=== PATIENT | female | born 1960 | race Caucasian/White ===

== ENCOUNTER 2016-11-11 07:34 | Inpatient (IN) | payer MEDICAID, OTHER ==
[~2016-11-11 07:34] MED LIST: Lidocaine 1%/Sod Bicarbonate in NS 8.4% 1 ML Syringe IV PRN; Sodium Chloride 0.9% 10 ML Syringe FLUSH PRN
[2016-11-11] MEDS: Lactated Ringers 1,000 ML IV SCH ×2 (08:00→10:57)
--- NOTE | 2016-11-11 08:03 | PCM.PREANE ---
Preanesthetic Assessment - ANESTHESIA/TRANSFUSION/FAMILY HX Anesthesia/Transfusion History: No Prior Transfusion(s), Prior Anesthesia (no prob) Family History of Anesthesia Reaction: No - REVIEW OF SYSTEMS Constitutional: Reports: no symptoms TIE MAN: Reports: no symptoms Respiratory: Reports: no symptoms Cardiovascular: Reports: blood pressure problem GI: Reports: no symptoms Other: Reports: sinus problem, depression, anxiety - PHYSICAL ASSESSMENT HR: 91 O2 Sat by Pulse Oximetry: 93 RR: 16 BP: 144/87 Temp: 97.5 F Height: 5 ft 5 in Weight: 91 kg NPO Status Date: 11/10/16 NPO Status Time: 19:00 ASA Class: 2 Mental Status: alert & oriented x3 Airway Class: Mallampati = 1 Dentition: Reports: normal dentition Thyro-Mental Finger Breadths: 3 Mouth Opening Finger Breadths: 3 ROM/Head Extension: full Respiratory Status: lungs clear to auscultation bilaterally Cardiovascular Status: regular rate & rhythm, normal S1, S2, no murmur, blood pressure WNL - IMAGING/EKG Impressions: 11/06/16 normal stress test EKG 10/28/16 WNL normal CXR 10/28/16 negative chest - ALLERGIES Allergies/Adverse Reactions: Allergies Allergy/AdvReac Type Severity Reaction Status Date / Time No Known Allergies Allergy Verified 11/11/16 08:04 - BLOOD Blood Available: No - ANESTHESIA PLAN Medication Ordered: Betablocker Beta Simone: Metoprolol Beta-Simone Last Dose Date: 11/11/16 Beta-Simone Last Dose Time: 06:30 Anesthesia Type Planned: spinal - ACKNOWLEDGEMENTS Pt an appropriate candidate for the planned anesthesia: Yes Alternatives and risks of anesthesia discussed w pt/guardian: Yes Pt/Guardian understands and agree with anesthesia plan: Yes PreAnesthesia Questionnaire HEENT History: Reports: Impaired vision, Other (see below) Other HEENT History: has reading glasses Cardiovascular History: Reports: High cholesterol, Hypertension Respiratory History: Reports: Bronchitis, recurrent, Other (see below) Other Respiratory History: non diagnoseed sleep apnea 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 Musculoskeletal History: Reports: Osteoarthritis, Other (see below) Other Musculoskeletal History: knee pain, L rib pain from fractures Neurological History: Reports: None Psychiatric History: Reports: Other (see below) Other Psychiatric History: capillary hemangioma, sebaceous cyst Endocrine/Metabolic History: Reports: Obesity/BMI 30+ Hematologic History: Reports: None Immunologic History: Reports: None Oncologic (Cancer) History: Reports: None - Past Surgical History GI Surgical History: Reports: Bariatric procedure, Colonoscopy, Other (see below ) Other GI Surgeries/Procedures: lap band procedure Female Surgical History: Reports: Breast biopsy, Other (see below) Other Female Surgeries/Procedures: bladder repair - SUBSTANCE USE Smoking Status *Q: Current Every Day Smoker Tobacco Use Within Last Twelve Months: Cigarettes Second Hand Smoke Exposure: Yes Days Per Week of Alcohol Use: 0 Recreational Drug Use History: No - HOME MEDS Home Medications: Home Meds Aspirin [Ecotrin] 81 mg PO DAILY 11/08/16 [History] Cholecalciferol (Vitamin D3) [Vitamin D3] 2,000 unit PO DAILY 11/08/16 [History] Citalopram Hydrobromide [Citalopram HBr] 10 mg PO DAILY 11/08/16 [History] DULoxetine [Cymbalta] 60 mg PO DAILY 11/08/16 [History] Estradiol [Estradiol] 1 patch TOP WEEKLY 11/08/16 [History] Fexofenadine/Pseudoephedrine [Rosalind-D 12 Hour] 1 tab PO BID PRN 11/08/16 [ History] Fluticasone Propionate [Flonase] 1 spray NASBOTH BID PRN 11/08/16 [History] LORazepam [LORazepam] 0.5 mg PO BID PRN 11/08/16 [History] Metoprolol Succinate [Metoprolol Succinate] 50 mg PO DAILY 11/08/16 [History] Zolpidem [Ambien] 10 mg PO BEDTIME 11/08/16 [History] - CURRENT (IN HOUSE) MEDS Current Meds: Current Medications Bisacodyl (Dulcolax) 5 mg PO DAILY PRN PRN Reason: Constipation Morphine Sulfate 8 mg/Epinephrine HCl 0.3 mg/Cefuroxime Sodium 750 mg/Ketorolac Tromethamine 30 mg/Sodium Chloride 27.9 ml 0 mg .XX ONETIME ONE Stop: 11/11/16 09:01 Cyclobenzaprine HCl (Flexeril) 10 mg PO TID PRN PRN Reason: Spasms Diphenhydramine HCl (Benadryl) 25 mg IVPUSH Q4H PRN PRN Reason: Nausea Docusate Sodium (Colace) 100 mg PO BID [facility] Famotidine (Pepcid) 20 mg PO Q12H [facility] Lactated Ringer's (Ringers, Lactated) 1,000 mls @ 125 mls/hr IV ASDIRECTED [facility] Cefazolin Sodium/Dextrose 2 gm (/ Premix) 50 mls @ 100 mls/hr IV Q8H [facility] Stop: 11/11/16 23:14 Lidocaine/Sodium Bicarbonate (Buffered Lidocaine 1% In Ns 8.4%) 0.25 ml IV ONETIME PRN PRN Reason: Prior to IV Start Stop: 11/11/16 18:00 Magnesium Hydroxide (Milk Of Magnesia) 30 ml PO BID PRN PRN Reason: Constipation Morphine Sulfate (Morphine) 2 mg IVPUSH Q2H PRN PRN Reason: Breakthrough Pain Multivitamins (Thera) 1 each PO WITHBREAKFAST [facility] Naloxone HCl (Narcan) 0.1 mg IVPUSH Q5M PRN PRN Reason: Oversedation Stop: 11/11/16 12:16 Ondansetron HCl (Zofran) 4 mg IVPUSH Q6H PRN PRN Reason: Nausea/Vomiting Oxycodone/Acetaminophen (Percocet 325-5 Mg) 1 - 2 tab PO Q4H PRN PRN Reason: Pain Rivaroxaban (Xarelto) 10 mg PO DAILY [facility] Senna (Senna) 8.6 mg PO BID PRN PRN Reason: Constipation Sodium Chloride (Saline Flush) 10 ml FLUSH ASDIRECTED PRN PRN Reason: Keep Vein Open Discontinued Medications Bupivacaine HCl (Marcaine 0.25%) Confirm Administered Dose 30 ml .ROUTE .STK- MED ONE Stop: 11/11/16 07:41 Cefazolin Sodium (Ancef) Confirm Administered Dose 2 gm .ROUTE .STK-MED ONE Stop: 11/11/16 07:41 Iodine (Iodine 2% Mild Tincture) Confirm Administered Dose 30 ml .ROUTE .STK- MED ONE Stop: 11/11/16 07:41 Tranexamic Acid (Cyklokapron) Confirm Administered Dose 1,000 mg .ROUTE .STK- MED ONE Stop: 11/11/16 07:41
[2016-11-11] MEDS ORDERED: Midazolam 1 MG/ML 2 ML SDV ONE (08:26)
[2016-11-11] MEDS ORDERED: Lidocaine 1% 2 ML SDV ONE (08:26)
[2016-11-11] MEDS ORDERED: fentaNYL 100 MCG/2 ML SDV ONE (08:26)
[2016-11-11] MEDS ORDERED: Propofol 200 MG/20 ML SDV ONE ×2 (08:26→09:14)
[2016-11-11] MEDS ORDERED: Morphine PF 10 MG/10 ML SDV ONE (08:27)
[2016-11-11] MEDS ORDERED: ceFAZolin 1 GM Vial ONE (08:29)
[2016-11-11] MEDS ORDERED: Lactated Ringers 1,000 ML ONE ×2 (08:53→10:02)
[2016-11-11] MEDS ORDERED: fentaNYL 100 MCG/2 ML SDV IVPUSH PRN (08:54)
[2016-11-11] MEDS ORDERED: Ondansetron 4 MG/2 ML SDV IVPUSH PRN ×2 (08:54→12:00)
[2016-11-11] MEDS ORDERED: diphenhydrAMINE 50 MG/ML SDV IVPUSH PRN (08:54)
[2016-11-11] MEDS: Bupivacaine 0.25% 30 ML SDV ONE ×2 (09:19→09:55)
[2016-11-11] MEDS: ceFAZolin 1 GM Vial ONE ×2 (09:19→09:47)
[2016-11-11] MEDS: Iodine/Sodium Iodide 2% Tincture 30 ML Bottle ONE ×2 (09:20→09:44)
[2016-11-11] MEDS: Morphine 8 MG, EPINEPHrine 0.3 MG, Cefuroxime 750 MG, Ketorolac 30 MG, Sodium Chloride ... ONE ×10 (09:20→09:54)
--- NOTE | 2016-11-11 09:50 | PCM.OPNOTE ---
- General Post-Op/Procedure Note Date of Surgery/Procedure: 11/11/16 Operative Procedure(s): right total knee arthroplasty Pre Op Diagnosis: right knee osteoarthrosis Post-Op Diagnosis: Same Anesthesia Technique: Local, MAC, Spinal Primary Surgeon: Jay Au Anesthesia Provider: Chelsey Romero Business Database Analyst: Angie Erwin Business Database Analyst: Pilar Barrientos EBMelita in mLs: 350 Complications: None Condition: Good
[2016-11-11] MEDS ORDERED: Meperidine PF 50 MG/ML Syringe IVPUSH PRN (10:00)
[2016-11-11] MEDS ORDERED: ESTRADIOL TOP SCH (10:00)
[2016-11-11] MEDS: DULoxetine 30 MG Cap PO SCH ×2 (10:28→18:21)
[2016-11-11] MEDS ORDERED: ePHEDrine/Normal Saline 25 MG/5 ML Syringe ONE (10:29)
[2016-11-11] MEDS ORDERED: Ondansetron 4 MG/2 ML SDV ONE (10:30)
--- NOTE | 2016-11-11 10:30 | PCM.POSTAN ---
POST ANESTHESIA ASSESSMENT - MENTAL STATUS Mental Status: alert, oriented - VITAL SIGNS Pulse Rate: 77 SaO2: 96 Resp Rate: 15 Blood Pressure: 118/66 Temperature: 98.1 F - RESPIRATORY Respiratory Status: respiratory rate WNL, airway patent, O2 saturation stable, supplemental oxygen - CARDIOVASCULAR CV Status: pulse rate WNL, blood pressure stable - GASTROINTESTINAL GI Status: no symptoms - PAIN Pain Score: 0 - POST OP HYDRATION Hydration Status: adequate & stable
--- NOTE | 2016-11-11 10:54 | CR ---
Right knee: AP and lateral views of the right knee were obtained. Comparison: No previous knee exam. Right knee prosthesis is seen. Components are aligned. Underlying bony structures are intact. Mild amount of soft tissue air is noted. Air within the joint is also seen. Underlying bony structures are intact. Impression: 1. Satisfactory radiographic appearance of recently placed right knee prosthesis. Diagnostic code #2
[2016-11-11] MEDS ORDERED: Morphine 2 MG/ML Syringe IVPUSH PRN (12:00)
[2016-11-11] MEDS ORDERED: Bisacodyl 5 MG Tab PO PRN (12:00)
[2016-11-11] MEDS ORDERED: Naloxone 0.4 MG/ML SDV IVPUSH PRN (12:00)
[2016-11-11] MEDS: Acetaminophen/oxyCODONE 325-5 MG Tab PO PRN ×3 (14:14→22:24)
--- NOTE | 2016-11-11 14:45 | PCM.CONSN ---
- General Info Date of Service: 11/11/16 Admission Dx/Problem (Free Text): 56 year old female with history of right knee discomfort is s/p right total knee arthroplasty. The patient required risk startification as a result of risk factors and strong family history. She exercised using the Oliver protocol for a exercise cardiolite study. The patient had poor to average exercise capacity and achieved a submaximal heart rate at 83%. The study was not gated; a machine malfunction apparently occurred. There was no perfusion abnormalities. The patient returns from the OR without complaints. Functional Status: Reports: pain controlled, tolerating diet, urinating - Review of Systems General: Reports: no symptoms HEENT: Reports: no symptoms Pulmonary: Reports: no symptoms Cardiovascular: Reports: no symptoms Gastrointestinal: Reports: No symptoms Genitourinary: Reports: no symptoms Musculoskeletal: Reports: no symptoms Skin: Reports: no symptoms Neurological: Reports: no symptoms Psychiatric: Reports: no symptoms - Patient Data Vitals - most recent: Last Vital Signs Temp 37.0 C 11/11/16 14:00 Pulse 71 11/11/16 14:00 Resp 16 11/11/16 14:00 BP 136/87 11/11/16 14:00 Pulse Ox 98 11/11/16 14:00 Weight - most recent: 91 kg I&O - last 24 hours: Intake & Output 11/10/16 11/11/16 11/11/16 22:59 06:59 14:59 Intake Total 480 Output Total 675 Balance -195 Med Orders - Current: Current Medications Aspirin (Halfprin) 81 mg PO DAILY [facility] Bisacodyl (Dulcolax) 5 mg PO DAILY PRN PRN Reason: Constipation Cholecalciferol (Vitamin D3) 2,000 units PO DAILY [facility] Citalopram Hydrobromide (Celexa) 10 mg PO DAILY [facility] Cyclobenzaprine HCl (Flexeril) 10 mg PO TID PRN PRN Reason: Spasms Diphenhydramine HCl (Benadryl) 25 mg IVPUSH Q4H PRN PRN Reason: Nausea Diphenhydramine HCl (Benadryl) 25 mg IVPUSH Q6H PRN PRN Reason: pruritis Stop: 11/11/16 18:00 Last Admin: 11/11/16 14:05 Dose: 25 mg Docusate Sodium (Colace) 100 mg PO BID [facility] Duloxetine HCl (Cymbalta) 60 mg PO DAILY [facility] Last Admin: 11/11/16 10:28 Dose: 60 mg Famotidine (Pepcid) 20 mg PO Q12H [facility] Flunisolide (Nasalide Nasal [place]) 0 ml NASBOTH BID PRN PRN Reason: as directed Cefazolin Sodium/Dextrose 2 gm (/ Premix) 50 mls @ 100 mls/hr IV Q8H [facility] Stop: 11/12/16 08:59 Lorazepam (Ativan) 0.5 mg PO BID PRN PRN Reason: Anxiety Magnesium Hydroxide (Milk Of Magnesia) 30 ml PO BID PRN PRN Reason: Constipation Metoprolol Succinate (Toprol Xl) 50 mg PO DAILY [facility] Morphine Sulfate (Morphine) 2 mg IVPUSH Q2H PRN PRN Reason: Breakthrough Pain Multivitamins (Thera) 1 each PO WITHBREAKFAST [facility] Ondansetron HCl (Zofran) 4 mg IVPUSH Q6H PRN PRN Reason: Nausea/Vomiting Oxycodone/Acetaminophen (Percocet 325-5 Mg) 1 - 2 tab PO Q4H PRN PRN Reason: Pain Last Admin: 11/11/16 14:14 Dose: 2 tab Fexofenadine/Pseudoephedrine 1 Tab 0 each PO BID PRN PRN Reason: allergy symptoms Rivaroxaban (Xarelto) 10 mg PO DAILY [facility] Senna (Senna) 8.6 mg PO BID PRN PRN Reason: Constipation Sodium Chloride (Saline Flush) 10 ml FLUSH ASDIRECTED PRN PRN Reason: Keep Vein Open Zolpidem Tartrate (Ambien) 10 mg PO BEDTIME PRN PRN Reason: SLEEP Discontinued Medications Bupivacaine HCl (Marcaine 0.25%) Confirm Administered Dose 30 ml .ROUTE .STK- MED ONE Stop: 11/11/16 07:41 Last Admin: 11/11/16 09:55 Dose: 20 ml Cefazolin Sodium (Ancef) Confirm Administered Dose 2 gm .ROUTE .STK-MED ONE Stop: 11/11/16 07:41 Last Admin: 11/11/16 09:47 Dose: 2 gm Cefazolin Sodium (Ancef) Confirm Administered Dose 2 gm .ROUTE .STK-MED ONE Stop: 11/11/16 08:30 Morphine Sulfate 8 mg/Epinephrine HCl 0.3 mg/Cefuroxime Sodium 750 mg/Ketorolac Tromethamine 30 mg/Sodium Chloride 27.9 ml 0 mg .XX ONETIME ONE Stop: 11/11/16 09:01 Last Admin: 11/11/16 09:54 Dose: 788.3 mg Ephedrine Sulfate (Ephedrine In Ns) Confirm Administered Dose 25 mg .ROUTE .STK- MED ONE Stop: 11/11/16 10:30 Fentanyl (Sublimaze) Confirm Administered Dose 100 mcg .ROUTE .STK-MED ONE Stop: 11/11/16 08:27 Fentanyl (Sublimaze) 50 mcg IVPUSH Q5M PRN PRN Reason: Pain Stop: 11/11/16 18:00 Lactated Ringer's (Ringers, Lactated) 1,000 mls @ 125 mls/hr IV ASDIRECTED [facility] Last Admin: 11/11/16 10:57 Dose: 125 mls/hr Lactated Ringer's (Ringers, Lactated) Confirm Administered Dose 1,000 mls @ as directed .ROUTE .STK-MED ONE Stop: 11/11/16 08:54 Lactated Ringer's (Ringers, Lactated) Confirm Administered Dose 1,000 mls @ as directed .ROUTE .STK-MED ONE Stop: 11/11/16 10:03 Iodine (Iodine 2% Mild Tincture) Confirm Administered Dose 30 ml .ROUTE .STK- MED ONE Stop: 11/11/16 07:41 Last Admin: 11/11/16 09:44 Dose: 18 ml Lidocaine HCl (Lidocaine 1%) Confirm Administered Dose 4 ml .ROUTE .STK-MED ONE Stop: 11/11/16 08:27 Lidocaine/Sodium Bicarbonate (Buffered Lidocaine 1% In Ns 8.4%) 0.25 ml IV ONETIME PRN PRN Reason: Prior to IV Start Stop: 11/11/16 18:00 Last Admin: 11/11/16 08:00 Dose: 0.25 ml Meperidine HCl (Demerol) 12.5 mg IVPUSH ONETIME PRN PRN Reason: shivering Stop: 11/12/16 10:01 Midazolam HCl (Versed 1 Mg/Ml) Confirm Administered Dose 2 mg .ROUTE .STK-MED ONE Stop: 11/11/16 08:27 Morphine Sulfate (Duramorph Pf) Confirm Administered Dose 10 mg .ROUTE .STK-MED ONE Stop: 11/11/16 08:28 Naloxone HCl (Narcan) 0.1 mg IVPUSH Q5M PRN PRN Reason: Oversedation Stop: 11/11/16 12:16 Non-Formulary Medication (Estradiol [Estradiol]) 1 patch TOP WEEKLY [facility] Ondansetron HCl (Zofran) 4 mg IVPUSH ONETIME PRN PRN Reason: Nausea/Vomiting Stop: 11/11/16 18:00 Ondansetron HCl (Zofran) Confirm Administered Dose 4 mg .ROUTE .STK-MED ONE Stop: 11/11/16 10:31 Propofol (Diprivan 20 Ml) Confirm Administered Dose 200 mg .ROUTE .STK-MED ONE Stop: 11/11/16 08:27 Propofol (Diprivan 20 Ml) Confirm Administered Dose 200 mg .ROUTE .STK-MED ONE Stop: 11/11/16 09:15 Tranexamic Acid (Cyklokapron) Confirm Administered Dose 1,000 mg .ROUTE .STK- MED ONE Stop: 11/11/16 07:41 Last Admin: 11/11/16 09:59 Dose: 1,000 mg - Exam Quality Assessment: urine catheter, DVT prophylaxis General: alert, oriented, cooperative, no acute distress HEENT: Pupils equal, Pupils reactive, EOMI Neck: supple, trachea midline Lungs: Normal respiratory effort Cardiovascular: regular rate, regular rhythm Abdomen: bowel sounds present, soft, no tenderness, no distension (Female) Exam: Deferred Back Exam: normal inspection Extremities: normal pulses Skin: warm Wound/Incisions: dressing dry and intact Neurological: no new focal deficit, normal speech Psy/Mental Status: alert, normal affect, normal mood Consult PN Assessment/Plan POD#: 0 (1) Bronchitis SNOMED Code(s): 65617465 Code(s): J40 - BRONCHITIS, NOT SPECIFIED ACUTE OR CHRONIC Current Visit : Yes (2) Tobacco dependence SNOMED Code(s): 30481278 Code(s): F17.200 - NICOTINE DEPENDENCE, UNSPECIFIED, UNCOMPLICATED Current Visit: Yes (3) Hypertension SNOMED Code(s): 10928878 Code(s): I10 - ESSENTIAL (PRIMARY) HYPERTENSION Current Visit: Yes (4) Hyperlipidemia SNOMED Code(s): 91911023 Code(s): E78.5 - HYPERLIPIDEMIA, UNSPECIFIED Current Visit: Yes (5) Depression SNOMED Code(s): 62356761 Code(s): F32.9 - MAJOR DEPRESSIVE DISORDER, SINGLE EPISODE, UNSPECIFIED Current Visit: Yes (6) H/O gastric bypass SNOMED Code(s): 280050177, 80093030, 352514007 Code(s): Z98.890 - OTHER SPECIFIED POSTPROCEDURAL STATES Current Visit: Yes Problem List Initiated/Reviewed/Updated: Yes Plan: Impression: Post op right total knee arthroplasty Right knee osteoarthritis ChronicCOPD Depression HTN Hyperlipidemia S/P gastric banding Tobacco dependence Vitamin D deficiency Hormone Replacemnt therapyPain mgt Plan: Pain mgt Anti-emetics IVF/Santos post op DVT prophylaxis per ortho PT/OT post op eval and recommendation. Home meds
[2016-11-11] MEDS ORDERED: LORazepam 0.5 MG Tab PO PRN (15:00)
[2016-11-11] MEDS: ceFAZolin 2 GM in Premix Bag 1 BAG IV SCH ×2 (16:36→23:51)
[2016-11-11] MEDS: Metoprolol Succinate 50 MG Tab.ER PO SCH (16:49)
[2016-11-11] MEDS: diphenhydrAMINE 50 MG/ML SDV IVPUSH PRN (18:23)
--- NOTE | 2016-11-11 20:05 | OR ---
DATE OF OPERATION: 11/11/2016 SURGEON: Jay Au MD OPERATION PERFORMED: Right total knee arthroplasty. PREOPERATIVE DIAGNOSIS: Right knee osteoarthrosis. POSTOPERATIVE DIAGNOSIS: Right knee osteoarthrosis. ANESTHESIA: Local MAC with spinal. ANESTHESIA PROVIDER: Chelsey Romero. Assist: Angie Barrientos ESTIMATED BLOOD LOSS: 350 mL COMPLICATIONS: None. CONDITION: Stable. IMPLANTS: 1. Deisi size 4 PS femur. 2. Deisi size 3 [place] tibial base plate. 3. Deisi size 3, 9 mm X3 polyethylene PS. 4. Deisi 29 x 9 mm asymmetric patella. DESCRIPTION OF PROCEDURE: The patient was identified in the preop holding area. Proper site was marked and identified by the surgeon. The patient was taken back to the operating theater. After adequate anesthesia, the patient's right lower extremity had a nonsterile tourniquet applied and it was then sterilely prepped and draped in the usual sterile fashion. OR timeout was performed. The patient received 2 g IV Ancef. At this time, right lower extremity was exsanguinated. Tourniquet was insufflated to 300 mmHg. Standard medial parapatellar incision was made. Medial parapatellar arthrotomy was created. Deep fibers of the MCL were raised and anterior fat pad was resected. At this time, attention was turned to the patella. The patella measured a 22 and was resected for a 13 for a 29 x 9 mm patella. Drill holes were then drilled and found to be in adequate position. The drill was then drilled in the distal femur and the intramedullary distal femoral cutting guide was then placed. A 10 mm was resected off the distal femur and was found to be an adequate resection. Sizing guide was placed. It was found to be a size 4 PS femur that was shown on the implant record at the beginning of this dictation. The drill holes were drilled for the epicondylar axis using [place] line and epicondyles as reference. At this time, the 4-in - 1 cutting block was placed. An anterior posterior and anterior and posterior chamfer cuts were then completed. The correct size box cut was then placed and the box cut was completed and found to be an adequate resection. Attention was turned to the tibia. The posterior medial lateral retractors were placed. The extramedullary tibial guide was placed. It was placed in the old footprint of the ACL. It was aligned with the center of the ankle and 0 degrees of slope, 9 mm was then resected off the unaffected side. There was found to be an acceptable reduction. At this time, posterior osteophytes were removed along with medial and lateral meniscus. A trial implant was placed with a correct sized tibia that was mentioned at the beginning of the dictation. A 9 mm trial spacer and 9 mm X3 polyethylene were then placed. The patient's knee was brought through range of motion. The patella was tracking centrally and was stable to varus and valgus stress. Alignment was found to be roughly at 0 degrees. At this time, cement was mixed on the back table. The tibia was stamped and drilled in proper rotation. All cut surfaces were irrigated with pulse lavage irrigation with Ancef and then completely dried. Once this was completed, then the cement was ready. The [place] tibial base plate was cemented in place. Next, the 4 PS femur cemented into place and the 9 mm X3 polyethylene was placed. The patient's knee was brought into full extension. Excess cement was removed. The patella was then cemented in place at this time. Tourniquet was deflated. One liter dilute Betadine solution was irrigated through the knee along with 3 L of pulse lavage irrigation with Ancef. Periarticular injection was then completed. The patient's knee was brought through a range of motion. Once the cement had time to set up and it was found to be stable to varus valgus stress, the patella was tracking centrally with full range of motion. At this time, a #2 barbed suture was used for closure of the medial parapatellar arthrotomy. Topical tranexamic acid was placed. 2-0 Vicryl was used subcutaneously, a running 3-0 Monocryl was used subcuticularly. The patient tolerated the procedure well and was sent to the PACU in stable condition. MMAVIVA /[id number] FRANCISCO
[2016-11-11] MEDS: Famotidine 20 MG Tab PO SCH (20:33)
[2016-11-11] MEDS: Cyclobenzaprine 10 MG Tab PO PRN (20:33)
[2016-11-11] MEDS: Docusate Sodium 100 MG Cap PO SCH (20:33)
[2016-11-11] MEDS ORDERED: PSEUDOEPHEDRINE PO PRN (21:00)
[2016-11-11] MEDS ORDERED: FEXOFENADINE PO PRN (21:00)
[2016-11-11] MEDS ORDERED: Sennosides 8.6 MG Tab PO PRN (21:00)
[2016-11-11] MEDS ORDERED: Magnesium Hydroxide 400 MG/5 ML Susp 30 ML Cup PO PRN (21:00)
[2016-11-11] MEDS ORDERED: Zolpidem 10 MG Tab PO PRN (21:00)
[2016-11-12] MEDS: Acetaminophen/oxyCODONE 325-5 MG Tab PO PRN ×5 (03:41→20:42)
[2016-11-12] MEDS: diphenhydrAMINE 50 MG/ML SDV IVPUSH PRN (03:42)
[2016-11-12] MEDS ORDERED: Multivitamins,Therapeutic Tab PO SCH (07:00)
[2016-11-12] MEDS: ceFAZolin 2 GM in Premix Bag 1 BAG IV SCH (07:57)
[2016-11-12] MEDS: Docusate Sodium 100 MG Cap PO SCH ×2 (08:01→20:38)
[2016-11-12] MEDS: Cholecalciferol (Vitamin D3) 1,000 Unit Tab PO SCH (08:02)
[2016-11-12] MEDS: Aspirin 81 MG Tab.EC PO SCH (08:02)
[2016-11-12] MEDS: Cyclobenzaprine 10 MG Tab PO PRN ×2 (08:02→20:38)
[2016-11-12] MEDS: Metoprolol Succinate 50 MG Tab.ER PO SCH (08:03)
[2016-11-12] MEDS: DULoxetine 30 MG Cap PO SCH (08:05)
[2016-11-12] MEDS: Multivitamins,Therapeutic Tab PO SCH (08:05)
[2016-11-12] MEDS: Famotidine 20 MG Tab PO SCH ×2 (08:06→20:38)
[2016-11-12] MEDS: Rivaroxaban 10 MG Tab PO SCH (08:14)
[2016-11-12] MEDS: oxyCODONE 5 MG Tab PO PRN ×2 (11:11→16:46)
--- NOTE | 2016-11-12 14:07 | PCM.CONSN ---
- General Info Date of Service: 11/12/16 Admission Dx/Problem (Free Text): POD #[address] Au; pain is increased. She has ambulated with PT. She is uncomfortable in pain at time of my exam. VSS. Hgb stable at 12.5 this am. Functional Status: Reports: pain controlled, tolerating diet - Review of Systems General: Reports: no symptoms HEENT: Reports: no symptoms Pulmonary: Reports: no symptoms Cardiovascular: Reports: no symptoms Gastrointestinal: Reports: No symptoms Genitourinary: Reports: no symptoms Musculoskeletal: Reports: leg pain Skin: Reports: no symptoms Neurological: Reports: no symptoms Psychiatric: Reports: no symptoms - Patient Data Vitals - most recent: Last Vital Signs Temp 99.1 F 11/12/16 12:47 Pulse 72 11/12/16 12:47 Resp 20 11/12/16 12:47 BP 188/93 H 11/12/16 12:52 Pulse Ox 90 L 11/12/16 12:47 Weight - most recent: 211 lb I&O - last 24 hours: Intake & Output 11/11/16 11/12/16 11/12/16 22:59 06:59 14:59 Intake Total 363 236 6297 Output Total 400 500 Balance 450 -50 1290 Lab Results last 24 hrs: Laboratory Results - last 24 hr 11/12/16 11/12/16 Range/Units 06:58 06:58 WBC 8.06 (3.98-10.04) K/mm3 RBC 4.22 (3.98-5.22) M/mm3 Hgb 12.5 (11.2-15.7) gm/L Hct 38.4 (34.1-44.9) % MCV 91.0 (79.4-94.8) fl MCH 29.6 (25.6-32.2) pg MCHC 32.6 (32.2-35.5) g/dl RDW Std Deviation 44.1 (36.4-46.3) fL Plt Count 190 (182-369) K/mm3 MPV 10.4 (9.4-12.3) fl Neut % (Auto) 70.6 (34.0-71.1) % Lymph % (Auto) 16.9 L (19.3-51.7) % [place] % (Auto) 8.2 (4.7-12.5) % Eos % (Auto) 3.5 (0.7-5.8) Baso % (Auto) 0.4 (0.1-1.2) % Neut # 5.70 (1.56-6.13) K/mm3 Lymph # 1.36 (1.18-3.74) K/mm3 [place] # 0.66 H (0.24-0.36) K/mm3 Eos # 0.28 (0.04-0.36) K/mm3 Baso # 0.03 (0.01-0.08) K/mm3 Sodium 136 (136-145) mEq/L Potassium 4.4 (3.5-5.1) mEq/L Chloride 103 (98-107) mEq/L Carbon Dioxide 28 (21-32) mEq/L Anion Gap 9.4 (5-15) BUN 9 (7-18) mg/dL Creatinine 0.9 (0.55-1.02) mg/dL Est Cr Clr Drug Dosing 61.31 mL/min Estimated GFR (MDRD) > 60 (>60) mL/min BUN/Creatinine Ratio 10.0 L (14-18) Glucose 123 H (74-106) mg/dL Calcium 8.5 (8.5-10.1) mg/dL Total Bilirubin 0.3 (0.2-1.0) mg/dL AST 14 L (15-37) U/L ALT 23 (14-59) U/L Alkaline Phosphatase 49 (46-116) U/L Total Protein 6.4 (6.4-8.2) g/dl Albumin 3.1 L (3.4-5.0) g/dl Globulin 3.3 gm/dL Albumin/Globulin Ratio 0.9 L (1-2) Med Orders - Current: Current Medications Aspirin (Halfprin) 81 mg PO DAILY [facility] Last Admin: 11/12/16 08:02 Dose: 81 mg Bisacodyl (Dulcolax) 5 mg PO DAILY PRN PRN Reason: Constipation Last Admin: 11/12/16 08:02 Dose: 5 mg Cholecalciferol (Vitamin D3) 2,000 units PO DAILY [facility] Last Admin: 11/12/16 08:02 Dose: 2,000 units Citalopram Hydrobromide (Celexa) 10 mg PO DAILY [facility] Cyclobenzaprine HCl (Flexeril) 10 mg PO TID PRN PRN Reason: Spasms Last Admin: 11/12/16 08:02 Dose: 10 mg Diphenhydramine HCl (Benadryl) 25 mg IVPUSH Q4H PRN PRN Reason: Nausea Last Admin: 11/12/16 03:42 Dose: 25 mg Docusate Sodium (Colace) 100 mg PO BID [facility] Last Admin: 11/12/16 08:01 Dose: 100 mg Duloxetine HCl (Cymbalta) 60 mg PO DAILY [facility] Last Admin: 11/12/16 08:05 Dose: 60 mg Famotidine (Pepcid) 20 mg PO Q12H [facility] Last Admin: 11/12/16 08:06 Dose: 20 mg Flunisolide (Nasalide Nasal [place]) 0 ml NASBOTH BID PRN PRN Reason: as directed Lorazepam (Ativan) 0.5 mg PO BID PRN PRN Reason: Anxiety Magnesium Hydroxide (Milk Of Magnesia) 30 ml PO BID PRN PRN Reason: Constipation Medroxyprogesterone Acetate (Provera) 2.5 mg PO DAILY [facility] Last Admin: 11/12/16 08:06 Dose: 2.5 mg Metoprolol Succinate (Toprol Xl) 50 mg PO DAILY [facility] Last Admin: 11/12/16 08:03 Dose: 50 mg Morphine Sulfate (Morphine) 2 mg IVPUSH Q2H PRN PRN Reason: Breakthrough Pain Multivitamins (Thera) 1 each PO DAILY [facility] Last Admin: 11/12/16 08:05 Dose: 1 each Ondansetron HCl (Zofran) 4 mg IVPUSH Q6H PRN PRN Reason: Nausea/Vomiting Oxycodone HCl (Oxycodone) 5 mg PO Q6H PRN PRN Reason: Pain Last Admin: 11/12/16 11:11 Dose: 5 mg Oxycodone/Acetaminophen (Percocet 325-5 Mg) 1 - 2 tab PO Q4H PRN PRN Reason: Pain Last Admin: 11/12/16 13:05 Dose: 2 tab Fexofenadine/Pseudoephedrine 1 Tab 0 each PO BID PRN PRN Reason: allergy symptoms Rivaroxaban (Xarelto) 10 mg PO DAILY [facility] Last Admin: 11/12/16 08:14 Dose: 10 mg Senna (Senna) 8.6 mg PO BID PRN PRN Reason: Constipation Sodium Chloride (Saline Flush) 10 ml FLUSH ASDIRECTED PRN PRN Reason: Keep Vein Open Zolpidem Tartrate (Ambien) 10 mg PO BEDTIME PRN PRN Reason: SLEEP Discontinued Medications Bupivacaine HCl (Marcaine 0.25%) Confirm Administered Dose 30 ml .ROUTE .STK- MED ONE Stop: 11/11/16 07:41 Last Admin: 11/11/16 09:55 Dose: 20 ml Cefazolin Sodium (Ancef) Confirm Administered Dose 2 gm .ROUTE .STK-MED ONE Stop: 11/11/16 07:41 Last Admin: 11/11/16 09:47 Dose: 2 gm Cefazolin Sodium (Ancef) Confirm Administered Dose 2 gm .ROUTE .STK-MED ONE Stop: 11/11/16 08:30 Morphine Sulfate 8 mg/Epinephrine HCl 0.3 mg/Cefuroxime Sodium 750 mg/Ketorolac Tromethamine 30 mg/Sodium Chloride 27.9 ml 0 mg .XX ONETIME ONE Stop: 11/11/16 09:01 Last Admin: 11/11/16 09:54 Dose: 788.3 mg Diphenhydramine HCl (Benadryl) 25 mg IVPUSH Q6H PRN PRN Reason: pruritis Stop: 11/11/16 18:00 Last Admin: 11/11/16 14:05 Dose: 25 mg Ephedrine Sulfate (Ephedrine In Ns) Confirm Administered Dose 25 mg .ROUTE .STK- MED ONE Stop: 11/11/16 10:30 Fentanyl (Sublimaze) Confirm Administered Dose 100 mcg .ROUTE .STK-MED ONE Stop: 11/11/16 08:27 Fentanyl (Sublimaze) 50 mcg IVPUSH Q5M PRN PRN Reason: Pain Stop: 11/11/16 18:00 Lactated Ringer's (Ringers, Lactated) 1,000 mls @ 125 mls/hr IV ASDIRECTED [facility] Last Admin: 11/11/16 10:57 Dose: 125 mls/hr Cefazolin Sodium/Dextrose 2 gm (/ Premix) 50 mls @ 100 mls/hr IV Q8H [facility] Stop: 11/12/16 08:59 Last Admin: 11/12/16 07:57 Dose: 100 mls/hr Lactated Ringer's (Ringers, Lactated) Confirm Administered Dose 1,000 mls @ as directed .ROUTE .STK-MED ONE Stop: 11/11/16 08:54 Lactated Ringer's (Ringers, Lactated) Confirm Administered Dose 1,000 mls @ as directed .ROUTE .STK-MED ONE Stop: 11/11/16 10:03 Iodine (Iodine 2% Mild Tincture) Confirm Administered Dose 30 ml .ROUTE .STK- MED ONE Stop: 11/11/16 07:41 Last Admin: 11/11/16 09:44 Dose: 18 ml Lidocaine HCl (Lidocaine 1%) Confirm Administered Dose 4 ml .ROUTE .STK-MED ONE Stop: 11/11/16 08:27 Lidocaine/Sodium Bicarbonate (Buffered Lidocaine 1% In Ns 8.4%) 0.25 ml IV ONETIME PRN PRN Reason: Prior to IV Start Stop: 11/11/16 18:00 Last Admin: 11/11/16 08:00 Dose: 0.25 ml Meperidine HCl (Demerol) 12.5 mg IVPUSH ONETIME PRN PRN Reason: shivering Stop: 11/12/16 10:01 Midazolam HCl (Versed 1 Mg/Ml) Confirm Administered Dose 2 mg .ROUTE .STK-MED ONE Stop: 11/11/16 08:27 Morphine Sulfate (Duramorph Pf) Confirm Administered Dose 10 mg .ROUTE .STK-MED ONE Stop: 11/11/16 08:28 Multivitamins (Thera) 1 each PO WITHBREAKFAST [facility] Naloxone HCl (Narcan) 0.1 mg IVPUSH Q5M PRN PRN Reason: Oversedation Stop: 11/11/16 12:16 Non-Formulary Medication (Estradiol [Estradiol]) 1 patch TOP WEEKLY [facility] Ondansetron HCl (Zofran) 4 mg IVPUSH ONETIME PRN PRN Reason: Nausea/Vomiting Stop: 11/11/16 18:00 Ondansetron HCl (Zofran) Confirm Administered Dose 4 mg .ROUTE .STK-MED ONE Stop: 11/11/16 10:31 Propofol (Diprivan 20 Ml) Confirm Administered Dose 200 mg .ROUTE .STK-MED ONE Stop: 11/11/16 08:27 Propofol (Diprivan 20 Ml) Confirm Administered Dose 200 mg .ROUTE .STK-MED ONE Stop: 11/11/16 09:15 Tranexamic Acid (Cyklokapron) Confirm Administered Dose 1,000 mg .ROUTE .STK- MED ONE Stop: 11/11/16 07:41 Last Admin: 11/11/16 09:59 Dose: 1,000 mg - Exam Quality Assessment: DVT prophylaxis General: alert, oriented, cooperative, mild distress HEENT: Pupils equal, Pupils reactive, EOMI, Mucous membr. moist/pink Neck: supple Lungs: Clear to auscultation, Normal respiratory effort Cardiovascular: regular rate, regular rhythm Abdomen: bowel sounds present, soft, no tenderness (Female) Exam: Deferred Back Exam: other (SCD's bilat; ice to rt knee) Peripheral Pulses: 1+: dorsalis pedis (L), dorsalis pedis (R) Skin: warm, dry Neurological: no new focal deficit Psy/Mental Status: alert, normal affect, normal mood Consult PN Assessment/Plan POD#: 1 Problem List Initiated/Reviewed/Updated: Yes My Orders last 24 hours: My Active Orders 11/12/16 14:03 Ready for Discharge [RC] PER UNIT ROUTINE Plan: POD #1 s/p Rt TKA with Dr. Au -Pain mgnt and DVT prophylax per ortho -PT/OT -VSS -Hgb stable at 12.5, other labs stable Other chronic medical conditions stable. Cont usual home meds upon discharge. If pain under control, she is ok for discharge later today from Hospitalist standpoint.
--- NOTE | 2016-11-12 14:50 | PCM.SURGPN ---
- General Info Date of Service: 11/12/16 POD#: 1 Functional Status: Reports: tolerating diet, ambulating, urinating, other (The pt states her pain is not controlled.) - Patient Data Vitals - most recent: Last Vital Signs Temp 99.1 F 11/12/16 12:47 Pulse 72 11/12/16 12:47 Resp 20 11/12/16 12:47 BP 188/93 H 11/12/16 12:52 Pulse Ox 90 L 11/12/16 12:47 Weight - most recent: 211 lb I&O - last 24 hours: Intake & Output 11/11/16 11/12/16 11/12/16 22:59 06:59 14:59 Intake Total 087 935 3621 Output Total 400 500 Balance 450 -50 1290 Lab Results last 24 hrs: Laboratory Results - last 24 hr 11/12/16 11/12/16 Range/Units 06:58 06:58 WBC 8.06 (3.98-10.04) K/mm3 RBC 4.22 (3.98-5.22) M/mm3 Hgb 12.5 (11.2-15.7) gm/L Hct 38.4 (34.1-44.9) % MCV 91.0 (79.4-94.8) fl MCH 29.6 (25.6-32.2) pg MCHC 32.6 (32.2-35.5) g/dl RDW Std Deviation 44.1 (36.4-46.3) fL Plt Count 190 (182-369) K/mm3 MPV 10.4 (9.4-12.3) fl Neut % (Auto) 70.6 (34.0-71.1) % Lymph % (Auto) 16.9 L (19.3-51.7) % [place] % (Auto) 8.2 (4.7-12.5) % Eos % (Auto) 3.5 (0.7-5.8) Baso % (Auto) 0.4 (0.1-1.2) % Neut # 5.70 (1.56-6.13) K/mm3 Lymph # 1.36 (1.18-3.74) K/mm3 [place] # 0.66 H (0.24-0.36) K/mm3 Eos # 0.28 (0.04-0.36) K/mm3 Baso # 0.03 (0.01-0.08) K/mm3 Sodium 136 (136-145) mEq/L Potassium 4.4 (3.5-5.1) mEq/L Chloride 103 (98-107) mEq/L Carbon Dioxide 28 (21-32) mEq/L Anion Gap 9.4 (5-15) BUN 9 (7-18) mg/dL Creatinine 0.9 (0.55-1.02) mg/dL Est Cr Clr Drug Dosing 61.31 mL/min Estimated GFR (MDRD) > 60 (>60) mL/min BUN/Creatinine Ratio 10.0 L (14-18) Glucose 123 H (74-106) mg/dL Calcium 8.5 (8.5-10.1) mg/dL Total Bilirubin 0.3 (0.2-1.0) mg/dL AST 14 L (15-37) U/L ALT 23 (14-59) U/L Alkaline Phosphatase 49 (46-116) U/L Total Protein 6.4 (6.4-8.2) g/dl Albumin 3.1 L (3.4-5.0) g/dl Globulin 3.3 gm/dL Albumin/Globulin Ratio 0.9 L (1-2) Med Orders - Current: Current Medications Aspirin (Halfprin) 81 mg PO DAILY [facility] Last Admin: 11/12/16 08:02 Dose: 81 mg Bisacodyl (Dulcolax) 5 mg PO DAILY PRN PRN Reason: Constipation Last Admin: 11/12/16 08:02 Dose: 5 mg Cholecalciferol (Vitamin D3) 2,000 units PO DAILY [facility] Last Admin: 11/12/16 08:02 Dose: 2,000 units Citalopram Hydrobromide (Celexa) 10 mg PO DAILY [facility] Cyclobenzaprine HCl (Flexeril) 10 mg PO TID PRN PRN Reason: Spasms Last Admin: 11/12/16 08:02 Dose: 10 mg Diphenhydramine HCl (Benadryl) 25 mg IVPUSH Q4H PRN PRN Reason: Nausea Last Admin: 11/12/16 03:42 Dose: 25 mg Docusate Sodium (Colace) 100 mg PO BID [facility] Last Admin: 11/12/16 08:01 Dose: 100 mg Duloxetine HCl (Cymbalta) 60 mg PO DAILY [facility] Last Admin: 11/12/16 08:05 Dose: 60 mg Famotidine (Pepcid) 20 mg PO Q12H [facility] Last Admin: 11/12/16 08:06 Dose: 20 mg Flunisolide (Nasalide Nasal [place]) 0 ml NASBOTH BID PRN PRN Reason: as directed Lorazepam (Ativan) 0.5 mg PO BID PRN PRN Reason: Anxiety Magnesium Hydroxide (Milk Of Magnesia) 30 ml PO BID PRN PRN Reason: Constipation Medroxyprogesterone Acetate (Provera) 2.5 mg PO DAILY [facility] Last Admin: 11/12/16 08:06 Dose: 2.5 mg Metoprolol Succinate (Toprol Xl) 50 mg PO DAILY [facility] Last Admin: 11/12/16 08:03 Dose: 50 mg Morphine Sulfate (Morphine) 2 mg IVPUSH Q2H PRN PRN Reason: Breakthrough Pain Multivitamins (Thera) 1 each PO DAILY [facility] Last Admin: 11/12/16 08:05 Dose: 1 each Ondansetron HCl (Zofran) 4 mg IVPUSH Q6H PRN PRN Reason: Nausea/Vomiting Oxycodone HCl (Oxycodone) 5 mg PO Q6H PRN PRN Reason: Pain Last Admin: 11/12/16 11:11 Dose: 5 mg Oxycodone/Acetaminophen (Percocet 325-5 Mg) 1 - 2 tab PO Q4H PRN PRN Reason: Pain Last Admin: 11/12/16 13:05 Dose: 2 tab Fexofenadine/Pseudoephedrine 1 Tab 0 each PO BID PRN PRN Reason: allergy symptoms Rivaroxaban (Xarelto) 10 mg PO DAILY [facility] Last Admin: 11/12/16 08:14 Dose: 10 mg Senna (Senna) 8.6 mg PO BID PRN PRN Reason: Constipation Sodium Chloride (Saline Flush) 10 ml FLUSH ASDIRECTED PRN PRN Reason: Keep Vein Open Zolpidem Tartrate (Ambien) 10 mg PO BEDTIME PRN PRN Reason: SLEEP Discontinued Medications Bupivacaine HCl (Marcaine 0.25%) Confirm Administered Dose 30 ml .ROUTE .[facility]- MED ONE Stop: 11/11/16 07:41 Last Admin: 11/11/16 09:55 Dose: 20 ml Cefazolin Sodium (Ancef) Confirm Administered Dose 2 gm .ROUTE .STK-MED ONE Stop: 11/11/16 07:41 Last Admin: 11/11/16 09:47 Dose: 2 gm Cefazolin Sodium (Ancef) Confirm Administered Dose 2 gm .ROUTE .STK-MED ONE Stop: 11/11/16 08:30 Morphine Sulfate 8 mg/Epinephrine HCl 0.3 mg/Cefuroxime Sodium 750 mg/Ketorolac Tromethamine 30 mg/Sodium Chloride 27.9 ml 0 mg .XX ONETIME ONE Stop: 11/11/16 09:01 Last Admin: 11/11/16 09:54 Dose: 788.3 mg Diphenhydramine HCl (Benadryl) 25 mg IVPUSH Q6H PRN PRN Reason: pruritis Stop: 11/11/16 18:00 Last Admin: 11/11/16 14:05 Dose: 25 mg Ephedrine Sulfate (Ephedrine In Ns) Confirm Administered Dose 25 mg .ROUTE .STK- MED ONE Stop: 11/11/16 10:30 Fentanyl (Sublimaze) Confirm Administered Dose 100 mcg .ROUTE .STK-MED ONE Stop: 11/11/16 08:27 Fentanyl (Sublimaze) 50 mcg IVPUSH Q5M PRN PRN Reason: Pain Stop: 11/11/16 18:00 Lactated Ringer's (Ringers, Lactated) 1,000 mls @ 125 mls/hr IV ASDIRECTED [facility] Last Admin: 11/11/16 10:57 Dose: 125 mls/hr Cefazolin Sodium/Dextrose 2 gm (/ Premix) 50 mls @ 100 mls/hr IV Q8H [facility] Stop: 11/12/16 08:59 Last Admin: 11/12/16 07:57 Dose: 100 mls/hr Lactated Ringer's (Ringers, Lactated) Confirm Administered Dose 1,000 mls @ as directed .ROUTE .STK-MED ONE Stop: 11/11/16 08:54 Lactated Ringer's (Ringers, Lactated) Confirm Administered Dose 1,000 mls @ as directed .ROUTE .STK-MED ONE Stop: 11/11/16 10:03 Iodine (Iodine 2% Mild Tincture) Confirm Administered Dose 30 ml .ROUTE .STK- MED ONE Stop: 11/11/16 07:41 Last Admin: 11/11/16 09:44 Dose: 18 ml Lidocaine HCl (Lidocaine 1%) Confirm Administered Dose 4 ml .ROUTE .STK-MED ONE Stop: 11/11/16 08:27 Lidocaine/Sodium Bicarbonate (Buffered Lidocaine 1% In Ns 8.4%) 0.25 ml IV ONETIME PRN PRN Reason: Prior to IV Start Stop: 11/11/16 18:00 Last Admin: 11/11/16 08:00 Dose: 0.25 ml Meperidine HCl (Demerol) 12.5 mg IVPUSH ONETIME PRN PRN Reason: shivering Stop: 11/12/16 10:01 Midazolam HCl (Versed 1 Mg/Ml) Confirm Administered Dose 2 mg .ROUTE .STK-MED ONE Stop: 11/11/16 08:27 Morphine Sulfate (Duramorph Pf) Confirm Administered Dose 10 mg .ROUTE .STK-MED ONE Stop: 11/11/16 08:28 Multivitamins (Thera) 1 each PO WITHBREAKFAST [facility] Naloxone HCl (Narcan) 0.1 mg IVPUSH Q5M PRN PRN Reason: Oversedation Stop: 11/11/16 12:16 Non-Formulary Medication (Estradiol [Estradiol]) 1 patch TOP WEEKLY [facility] Ondansetron HCl (Zofran) 4 mg IVPUSH ONETIME PRN PRN Reason: Nausea/Vomiting Stop: 11/11/16 18:00 Ondansetron HCl (Zofran) Confirm Administered Dose 4 mg .ROUTE .STK-MED ONE Stop: 11/11/16 10:31 Propofol (Diprivan 20 Ml) Confirm Administered Dose 200 mg .ROUTE .STK-MED ONE Stop: 11/11/16 08:27 Propofol (Diprivan 20 Ml) Confirm Administered Dose 200 mg .ROUTE .STK-MED ONE Stop: 11/11/16 09:15 Tranexamic Acid (Cyklokapron) Confirm Administered Dose 1,000 mg .ROUTE .STK- MED ONE Stop: 11/11/16 07:41 Last Admin: 11/11/16 09:59 Dose: 1,000 mg - Exam Wound/Incisions: dressing dry and intact General: alert, cooperative, no acute distress Lungs: Normal respiratory effort Extremities: normal pulses, no calf tenderness (NVS intact for RLE. Noemy's negative.) - Problem List Review Problem List Initiated/Reviewed/Updated: Yes - My Orders Last 24 Hours: Active Orders 24 hr Category Date Time Status Ready for Discharge [RC] PER UNIT ROUTINE Care 11/12/16 14:03 Active Aspirin [Halfprin] Med 11/12/16 09:00 Active 81 mg PO DAILY Cholecalciferol (Vitamin D3) [Vitamin D3] Med 11/12/16 09:00 Active 2,000 units PO DAILY Citalopram [Celexa] Med 11/12/16 18:00 Active 10 mg PO DAILY Cyclobenzaprine [Flexeril] Med 11/11/16 15:00 Active 10 mg PO TID PRN DULoxetine [Cymbalta] Med 11/11/16 18:00 Active 60 mg PO DAILY Docusate Sodium [Colace] Med 11/11/16 21:00 Active 100 mg PO BID Famotidine [Pepcid] Med 11/11/16 21:00 Active 20 mg PO Q12H Flunisolide [Nasalide Nasal [place]] Med 11/11/16 21:00 Active 0 ml NASBOTH BID PRN LORazepam [Ativan] Med 11/11/16 15:00 Active 0.5 mg PO BID PRN Magnesium Hydroxide [Milk of Magnesia] Med 11/11/16 21:00 Active 30 ml PO BID PRN Metoprolol Succinate [Toprol XL] Med 11/11/16 16:00 Active 50 mg PO DAILY Multivitamins,Therapeutic [Thera] Med 11/12/16 09:00 Active 1 each PO DAILY Patient's Own Medication [Ptom] Med 11/11/16 21:00 Active 0 each PO BID PRN Rivaroxaban [Xarelto] Med 11/12/16 09:00 Active 10 mg PO DAILY Sennosides [Senna] Med 11/11/16 21:00 Active 8.6 mg PO BID PRN Zolpidem [Ambien] Med 11/11/16 21:00 Active 10 mg PO BEDTIME PRN medroxyPROGESTERone [Provera] Med 11/12/16 09:00 Active 2.5 mg PO DAILY oxyCODONE Med 11/12/16 10:47 Active 5 mg PO Q6H PRN Medication Orders Aspirin (Halfprin) 81 mg PO DAILY [facility] Last Admin: 11/12/16 08:02 Dose: 81 mg Bisacodyl (Dulcolax) 5 mg PO DAILY PRN PRN Reason: Constipation Last Admin: 11/12/16 08:02 Dose: 5 mg Cholecalciferol (Vitamin D3) 2,000 units PO DAILY [facility] Last Admin: 11/12/16 08:02 Dose: 2,000 units Citalopram Hydrobromide (Celexa) 10 mg PO DAILY [facility] Cyclobenzaprine HCl (Flexeril) 10 mg PO TID PRN PRN Reason: Spasms Last Admin: 11/12/16 08:02 Dose: 10 mg Admin: 11/11/16 20:33 Dose: 10 mg Diphenhydramine HCl (Benadryl) 25 mg IVPUSH Q4H PRN PRN Reason: Nausea Last Admin: 11/12/16 03:42 Dose: 25 mg Admin: 11/11/16 18:23 Dose: 25 mg Docusate Sodium (Colace) 100 mg PO BID [facility] Last Admin: 11/12/16 08:01 Dose: 100 mg Admin: 11/11/16 20:33 Dose: 100 mg Duloxetine HCl (Cymbalta) 60 mg PO DAILY [facility] Last Admin: 11/12/16 08:05 Dose: 60 mg Admin: 11/11/16 18:21 Dose: Admin: 11/11/16 10:28 Dose: 60 mg Famotidine (Pepcid) 20 mg PO Q12H [facility] Last Admin: 11/12/16 08:06 Dose: 20 mg Admin: 11/11/16 20:33 Dose: 20 mg Flunisolide (Nasalide Nasal [place]) 0 ml NASBOTH BID PRN PRN Reason: as directed Lorazepam (Ativan) 0.5 mg PO BID PRN PRN Reason: Anxiety Magnesium Hydroxide (Milk Of Magnesia) 30 ml PO BID PRN PRN Reason: Constipation Medroxyprogesterone Acetate (Provera) 2.5 mg PO DAILY [facility] Last Admin: 11/12/16 08:06 Dose: 2.5 mg Metoprolol Succinate (Toprol Xl) 50 mg PO DAILY [facility] Last Admin: 11/12/16 08:03 Dose: 50 mg Admin: 03/06/17 16:49 Dose: Morphine Sulfate (Morphine) 2 mg IVPUSH Q2H PRN PRN Reason: Breakthrough Pain Multivitamins (Thera) 1 each PO DAILY [facility] Last Admin: 11/12/16 08:05 Dose: 1 each Ondansetron HCl (Zofran) 4 mg IVPUSH Q6H PRN PRN Reason: Nausea/Vomiting Oxycodone HCl (Oxycodone) 5 mg PO Q6H PRN PRN Reason: Pain Last Admin: 11/12/16 11:11 Dose: 5 mg Oxycodone/Acetaminophen (Percocet 325-5 Mg) 1 - 2 tab PO Q4H PRN PRN Reason: Pain Last Admin: 11/12/16 13:05 Dose: 2 tab Admin: 11/12/16 07:58 Dose: 2 tab Admin: 11/12/16 03:41 Dose: 2 tab Admin: 11/11/16 22:24 Dose: 2 tab Admin: 11/11/16 18:21 Dose: 2 tab Admin: 11/11/16 14:14 Dose: 2 tab Fexofenadine/Pseudoephedrine 1 Tab 0 each PO BID PRN PRN Reason: allergy symptoms Rivaroxaban (Xarelto) 10 mg PO DAILY [facility] Last Admin: 11/12/16 08:14 Dose: 10 mg Senna (Senna) 8.6 mg PO BID PRN PRN Reason: Constipation Sodium Chloride (Saline Flush) 10 ml FLUSH ASDIRECTED PRN PRN Reason: Keep Vein Open Zolpidem Tartrate (Ambien) 10 mg PO BEDTIME PRN PRN Reason: SLEEP - Assessment Assessment (Free Text/Narrative):: POD#1 - right TKA - Plan Plan (Free Text/Narrative):: 1. Hgb 12.5. 2. Xarelto, SCDs, TEDs. 3. The pt has been slow to progress with therapy today due to pain. 4. Medical management per Hospitalist service. Dr. Au evaluated the pt today.
[2016-11-12] MEDS ORDERED: hydrALAZINE 20 MG/ML SDV IVPUSH PRN (16:18)
[2016-11-12] MEDS: Losartan 25 MG Tab PO SCH ×2 (16:46→20:39)
[2016-11-12] MEDS: Citalopram 10 MG Tab PO SCH ×2 (16:47→18:17)
[2016-11-13] MEDS: oxyCODONE 5 MG Tab PO PRN ×2 (01:44→08:50)
[2016-11-13] MEDS: Acetaminophen/oxyCODONE 325-5 MG Tab PO PRN ×3 (01:45→10:39)
[2016-11-13] MEDS: Cyclobenzaprine 10 MG Tab PO PRN (05:47)
[2016-11-13] MEDS: Metoprolol Succinate 50 MG Tab.ER PO SCH (08:39)
[2016-11-13] MEDS: Multivitamins,Therapeutic Tab PO SCH (08:39)
[2016-11-13] MEDS: Docusate Sodium 100 MG Cap PO SCH (08:39)
[2016-11-13] MEDS: Rivaroxaban 10 MG Tab PO SCH (08:40)
[2016-11-13] MEDS: DULoxetine 30 MG Cap PO SCH (08:40)
[2016-11-13] MEDS: Cholecalciferol (Vitamin D3) 1,000 Unit Tab PO SCH (08:41)
[2016-11-13] MEDS: Losartan 25 MG Tab PO SCH (08:41)
[2016-11-13] MEDS: Famotidine 20 MG Tab PO SCH (08:41)
[2016-11-13] MEDS: Citalopram 10 MG Tab PO SCH (08:41)
[2016-11-13] MEDS: Aspirin 81 MG Tab.EC PO SCH (08:41)
[2016-11-13 08:46] VITALS: BP 123/65
--- NOTE | 2016-11-13 09:05 | PCM.CONSN ---
- General Info Date of Service: 11/13/16 Admission Dx/Problem (Free Text): POD #[address] Au. Pain is under much better control today. Slept well last night. Has done well with PT/OT. She is ready to be discharged home today. VSS Labs for this am ordered and pending. Functional Status: Reports: pain controlled, tolerating diet, ambulating, urinating. Denies: new symptoms - Review of Systems General: Reports: no symptoms HEENT: Reports: no symptoms Pulmonary: Reports: no symptoms Cardiovascular: Reports: no symptoms Gastrointestinal: Reports: No symptoms Genitourinary: Reports: no symptoms Musculoskeletal: Reports: leg pain Skin: Reports: no symptoms Neurological: Reports: no symptoms Psychiatric: Reports: no symptoms - Patient Data Vitals - most recent: Last Vital Signs Temp 99.0 F 11/13/16 07:56 Pulse 79 11/13/16 08:39 Resp 18 11/13/16 07:56 BP 123/65 11/13/16 08:41 Pulse Ox 92 L 11/13/16 07:56 Weight - most recent: 207 lb 1 oz I&O - last 24 hours: Intake & Output 11/12/16 11/13/16 11/13/16 22:59 06:59 14:59 Intake Total 1150 800 Output Total 350 3200 Balance 800 -2400 Med Orders - Current: Current Medications Aspirin (Halfprin) 81 mg PO DAILY [facility] Last Admin: 11/13/16 08:41 Dose: 81 mg Bisacodyl (Dulcolax) 5 mg PO DAILY PRN PRN Reason: Constipation Last Admin: 11/12/16 08:02 Dose: 5 mg Cholecalciferol (Vitamin D3) 2,000 units PO DAILY [facility] Last Admin: 11/13/16 08:41 Dose: 2,000 units Citalopram Hydrobromide (Celexa) 10 mg PO DAILY [facility] Last Admin: 11/13/16 08:41 Dose: 10 mg Cyclobenzaprine HCl (Flexeril) 10 mg PO TID PRN PRN Reason: Spasms Last Admin: 11/13/16 05:47 Dose: 10 mg Diphenhydramine HCl (Benadryl) 25 mg IVPUSH Q4H PRN PRN Reason: Nausea Last Admin: 11/12/16 03:42 Dose: 25 mg Docusate Sodium (Colace) 100 mg PO BID [facility] Last Admin: 11/13/16 08:39 Dose: 100 mg Duloxetine HCl (Cymbalta) 60 mg PO DAILY [facility] Last Admin: 11/13/16 08:40 Dose: 60 mg Famotidine (Pepcid) 20 mg PO Q12H [facility] Last Admin: 11/13/16 08:41 Dose: 20 mg Flunisolide (Nasalide Nasal [place]) 0 ml NASBOTH BID PRN PRN Reason: as directed Hydralazine HCl (Apresoline) 20 mg IVPUSH Q6H PRN PRN Reason: Hypertension Last Admin: 11/12/16 20:47 Dose: 20 mg Lorazepam (Ativan) 0.5 mg PO BID PRN PRN Reason: Anxiety Last Admin: 11/12/16 20:38 Dose: 0.5 mg Losartan Potassium (Cozaar) 25 mg PO BID [facility] Last Admin: 11/13/16 08:41 Dose: 25 mg Magnesium Hydroxide (Milk Of Magnesia) 30 ml PO BID PRN PRN Reason: Constipation Medroxyprogesterone Acetate (Provera) 2.5 mg PO DAILY [facility] Last Admin: 11/13/16 08:40 Dose: 2.5 mg Metoprolol Succinate (Toprol Xl) 50 mg PO DAILY [facility] Last Admin: 11/13/16 08:39 Dose: 50 mg Morphine Sulfate (Morphine) 2 mg IVPUSH Q2H PRN PRN Reason: Breakthrough Pain Multivitamins (Thera) 1 each PO DAILY [facility] Last Admin: 11/13/16 08:39 Dose: 1 each Ondansetron HCl (Zofran) 4 mg IVPUSH Q6H PRN PRN Reason: Nausea/Vomiting Oxycodone HCl (Oxycodone) 5 mg PO Q6H PRN PRN Reason: Pain Last Admin: 11/13/16 08:50 Dose: 5 mg Oxycodone/Acetaminophen (Percocet 325-5 Mg) 1 - 2 tab PO Q4H PRN PRN Reason: Pain Last Admin: 11/13/16 05:47 Dose: 2 tab Fexofenadine/Pseudoephedrine 1 Tab 0 each PO BID PRN PRN Reason: allergy symptoms Rivaroxaban (Xarelto) 10 mg PO DAILY [facility] Last Admin: 11/13/16 08:40 Dose: 10 mg Senna (Senna) 8.6 mg PO BID PRN PRN Reason: Constipation Sodium Chloride (Saline Flush) 10 ml FLUSH ASDIRECTED PRN PRN Reason: Keep Vein Open Zolpidem Tartrate (Ambien) 10 mg PO BEDTIME PRN PRN Reason: SLEEP Discontinued Medications Bupivacaine HCl (Marcaine 0.25%) Confirm Administered Dose 30 ml .ROUTE .STK- MED ONE Stop: 11/11/16 07:41 Last Admin: 11/11/16 09:55 Dose: 20 ml Cefazolin Sodium (Ancef) Confirm Administered Dose 2 gm .ROUTE .STK-MED ONE Stop: 11/11/16 07:41 Last Admin: 11/11/16 09:47 Dose: 2 gm Cefazolin Sodium (Ancef) Confirm Administered Dose 2 gm .ROUTE .STK-MED ONE Stop: 11/11/16 08:30 Morphine Sulfate 8 mg/Epinephrine HCl 0.3 mg/Cefuroxime Sodium 750 mg/Ketorolac Tromethamine 30 mg/Sodium Chloride 27.9 ml 0 mg .XX ONETIME ONE Stop: 11/11/16 09:01 Last Admin: 11/11/16 09:54 Dose: 788.3 mg Diphenhydramine HCl (Benadryl) 25 mg IVPUSH Q6H PRN PRN Reason: pruritis Stop: 11/11/16 18:00 Last Admin: 11/11/16 14:05 Dose: 25 mg Ephedrine Sulfate (Ephedrine In Ns) Confirm Administered Dose 25 mg .ROUTE .STK- MED ONE Stop: 11/11/16 10:30 Fentanyl (Sublimaze) Confirm Administered Dose 100 mcg .ROUTE .STK-MED ONE Stop: 11/11/16 08:27 Fentanyl (Sublimaze) 50 mcg IVPUSH Q5M PRN PRN Reason: Pain Stop: 11/11/16 18:00 Lactated Ringer's (Ringers, Lactated) 1,000 mls @ 125 mls/hr IV ASDIRECTED [facility] Last Admin: 11/11/16 10:57 Dose: 125 mls/hr Cefazolin Sodium/Dextrose 2 gm (/ Premix) 50 mls @ 100 mls/hr IV Q8H [facility] Stop: 11/12/16 08:59 Last Admin: 11/12/16 07:57 Dose: 100 mls/hr Lactated Ringer's (Ringers, Lactated) Confirm Administered Dose 1,000 mls @ as directed .ROUTE .STK-MED ONE Stop: 11/11/16 08:54 Lactated Ringer's (Ringers, Lactated) Confirm Administered Dose 1,000 mls @ as directed .ROUTE .STK-MED ONE Stop: 11/11/16 10:03 Iodine (Iodine 2% Mild Tincture) Confirm Administered Dose 30 ml .ROUTE .STK- MED ONE Stop: 11/11/16 07:41 Last Admin: 11/11/16 09:44 Dose: 18 ml Lidocaine HCl (Lidocaine 1%) Confirm Administered Dose 4 ml .ROUTE .STK-MED ONE Stop: 11/11/16 08:27 Lidocaine/Sodium Bicarbonate (Buffered Lidocaine 1% In Ns 8.4%) 0.25 ml IV ONETIME PRN PRN Reason: Prior to IV Start Stop: 11/11/16 18:00 Last Admin: 11/11/16 08:00 Dose: 0.25 ml Meperidine HCl (Demerol) 12.5 mg IVPUSH ONETIME PRN PRN Reason: shivering Stop: 11/12/16 10:01 Midazolam HCl (Versed 1 Mg/Ml) Confirm Administered Dose 2 mg .ROUTE .STK-MED ONE Stop: 11/11/16 08:27 Morphine Sulfate (Duramorph Pf) Confirm Administered Dose 10 mg .ROUTE .STK-MED ONE Stop: 11/11/16 08:28 Multivitamins (Thera) 1 each PO WITHBREAKFAST [facility] Naloxone HCl (Narcan) 0.1 mg IVPUSH Q5M PRN PRN Reason: Oversedation Stop: 11/11/16 12:16 Non-Formulary Medication (Estradiol [Estradiol]) 1 patch TOP WEEKLY [facility] Ondansetron HCl (Zofran) 4 mg IVPUSH ONETIME PRN PRN Reason: Nausea/Vomiting Stop: 11/11/16 18:00 Ondansetron HCl (Zofran) Confirm Administered Dose 4 mg .ROUTE .STK-MED ONE Stop: 11/11/16 10:31 Propofol (Diprivan 20 Ml) Confirm Administered Dose 200 mg .ROUTE .STK-MED ONE Stop: 11/11/16 08:27 Propofol (Diprivan 20 Ml) Confirm Administered Dose 200 mg .ROUTE .STK-MED ONE Stop: 11/11/16 09:15 Tranexamic Acid (Cyklokapron) Confirm Administered Dose 1,000 mg .ROUTE .STK- MED ONE Stop: 11/11/16 07:41 Last Admin: 11/11/16 09:59 Dose: 1,000 mg - Exam Quality Assessment: DVT prophylaxis General: alert, oriented, cooperative, no acute distress HEENT: Pupils equal, Pupils reactive, EOMI, Mucous membr. moist/pink Neck: supple Lungs: Clear to auscultation, Normal respiratory effort Cardiovascular: regular rate, regular rhythm Abdomen: bowel sounds present, soft, no tenderness, no distension (Female) Exam: Deferred Extremities: other (ice to knee, SCD's bilat) Peripheral Pulses: 1+: dorsalis pedis (L), dorsalis pedis (R) Skin: warm, dry Neurological: no new focal deficit Psy/Mental Status: alert, normal affect, normal mood Consult PN Assessment/Plan POD#: 2 Problem List Initiated/Reviewed/Updated: Yes My Orders last 24 hours: My Active Orders 11/12/16 14:03 Ready for Discharge [RC] PER UNIT ROUTINE Plan: POD #2 s/p Rt TKA with Dr. Au -Pain mgnt and DVT prophylax per ortho-- pain under much better control today - patient anxious for dc home today -PT/OT -VSS Other chronic medical conditions stable. Cont usual home meds upon discharge. Pain under better control, she is ok for discharge today from Hospitalist standpoint.
--- NOTE | 2016-11-13 13:17 | PCM.SURGPN ---
- General Info Date of Service: 11/13/16 POD#: 2 Functional Status: Reports: pain controlled, tolerating diet, ambulating, urinating. Denies: new symptoms - Review of Systems General: Denies: fever, chills Musculoskeletal: Reports: other (The pt reports her pain has been controlled.) - Patient Data Vitals - most recent: Last Vital Signs Temp 99.0 F 11/13/16 07:56 Pulse 79 11/13/16 08:39 Resp 18 11/13/16 07:56 BP 123/65 11/13/16 08:41 Pulse Ox 92 L 11/13/16 07:56 Weight - most recent: 207 lb 1 oz I&O - last 24 hours: Intake & Output 11/12/16 11/13/16 11/13/16 22:59 06:59 14:59 Intake Total 1150 800 450 Output Total 350 3200 Balance 800 -2400 450 Med Orders - Current: Current Medications Aspirin (Halfprin) 81 mg PO DAILY [facility] Last Admin: 11/13/16 08:41 Dose: 81 mg Bisacodyl (Dulcolax) 5 mg PO DAILY PRN PRN Reason: Constipation Last Admin: 11/12/16 08:02 Dose: 5 mg Cholecalciferol (Vitamin D3) 2,000 units PO DAILY [facility] Last Admin: 11/13/16 08:41 Dose: 2,000 units Citalopram Hydrobromide (Celexa) 10 mg PO DAILY [facility] Last Admin: 11/13/16 08:41 Dose: 10 mg Cyclobenzaprine HCl (Flexeril) 10 mg PO TID PRN PRN Reason: Spasms Last Admin: 11/13/16 05:47 Dose: 10 mg Diphenhydramine HCl (Benadryl) 25 mg IVPUSH Q4H PRN PRN Reason: Nausea Last Admin: 11/12/16 03:42 Dose: 25 mg Docusate Sodium (Colace) 100 mg PO BID [facility] Last Admin: 11/13/16 08:39 Dose: 100 mg Duloxetine HCl (Cymbalta) 60 mg PO DAILY [facility] Last Admin: 11/13/16 08:40 Dose: 60 mg Famotidine (Pepcid) 20 mg PO Q12H [facility] Last Admin: 11/13/16 08:41 Dose: 20 mg Flunisolide (Nasalide Nasal [place]) 0 ml NASBOTH BID PRN PRN Reason: as directed Hydralazine HCl (Apresoline) 20 mg IVPUSH Q6H PRN PRN Reason: Hypertension Last Admin: 11/12/16 20:47 Dose: 20 mg Lorazepam (Ativan) 0.5 mg PO BID PRN PRN Reason: Anxiety Last Admin: 11/12/16 20:38 Dose: 0.5 mg Losartan Potassium (Cozaar) 25 mg PO BID [facility] Last Admin: 11/13/16 08:41 Dose: 25 mg Magnesium Hydroxide (Milk Of Magnesia) 30 ml PO BID PRN PRN Reason: Constipation Medroxyprogesterone Acetate (Provera) 2.5 mg PO DAILY [facility] Last Admin: 11/13/16 08:40 Dose: 2.5 mg Metoprolol Succinate (Toprol Xl) 50 mg PO DAILY [facility] Last Admin: 11/13/16 08:39 Dose: 50 mg Morphine Sulfate (Morphine) 2 mg IVPUSH Q2H PRN PRN Reason: Breakthrough Pain Multivitamins (Thera) 1 each PO DAILY [facility] Last Admin: 11/13/16 08:39 Dose: 1 each Ondansetron HCl (Zofran) 4 mg IVPUSH Q6H PRN PRN Reason: Nausea/Vomiting Oxycodone HCl (Oxycodone) 5 mg PO Q6H PRN PRN Reason: Pain Last Admin: 11/13/16 08:50 Dose: 5 mg Oxycodone/Acetaminophen (Percocet 325-5 Mg) 1 - 2 tab PO Q4H PRN PRN Reason: Pain Last Admin: 11/13/16 10:39 Dose: 2 tab Fexofenadine/Pseudoephedrine 1 Tab 0 each PO BID PRN PRN Reason: allergy symptoms Rivaroxaban (Xarelto) 10 mg PO DAILY [facility] Last Admin: 11/13/16 08:40 Dose: 10 mg Senna (Senna) 8.6 mg PO BID PRN PRN Reason: Constipation Sodium Chloride (Saline Flush) 10 ml FLUSH ASDIRECTED PRN PRN Reason: Keep Vein Open Zolpidem Tartrate (Ambien) 10 mg PO BEDTIME PRN PRN Reason: SLEEP Discontinued Medications Bupivacaine HCl (Marcaine 0.25%) Confirm Administered Dose 30 ml [facility] Stop: 03/06/17 07:41 Last Admin: 11/11/16 09:55 Dose: 20 ml Cefazolin Sodium (Ancef) Confirm Administered Dose 2 gm .ROUTE .STK-MED ONE Stop: 11/11/16 07:41 Last Admin: 11/11/16 09:47 Dose: 2 gm Cefazolin Sodium (Ancef) Confirm Administered Dose 2 gm .ROUTE .STK-MED ONE Stop: 11/11/16 08:30 Morphine Sulfate 8 mg/Epinephrine HCl 0.3 mg/Cefuroxime Sodium 750 mg/Ketorolac Tromethamine 30 mg/Sodium Chloride 27.9 ml 0 mg .XX ONETIME ONE Stop: 11/11/16 09:01 Last Admin: 11/11/16 09:54 Dose: 788.3 mg Diphenhydramine HCl (Benadryl) 25 mg IVPUSH Q6H PRN PRN Reason: pruritis Stop: 11/11/16 18:00 Last Admin: 11/11/16 14:05 Dose: 25 mg Ephedrine Sulfate (Ephedrine In Ns) Confirm Administered Dose 25 mg .ROUTE .STK- MED ONE Stop: 11/11/16 10:30 Fentanyl (Sublimaze) Confirm Administered Dose 100 mcg .ROUTE .STK-MED ONE Stop: 11/11/16 08:27 Fentanyl (Sublimaze) 50 mcg IVPUSH Q5M PRN PRN Reason: Pain Stop: 11/11/16 18:00 Lactated Ringer's (Ringers, Lactated) 1,000 mls @ 125 mls/hr IV ASDIRECTED [facility] Last Admin: 11/11/16 10:57 Dose: 125 mls/hr Cefazolin Sodium/Dextrose 2 gm (/ Premix) 50 mls @ 100 mls/hr IV Q8H [facility] Stop: 11/12/16 08:59 Last Admin: 11/12/16 07:57 Dose: 100 mls/hr Lactated Ringer's (Ringers, Lactated) Confirm Administered Dose 1,000 mls @ as directed .ROUTE .STK-MED ONE Stop: 11/11/16 08:54 Lactated Ringer's (Ringers, Lactated) Confirm Administered Dose 1,000 mls @ as directed .ROUTE .STK-MED ONE Stop: 11/11/16 10:03 Iodine (Iodine 2% Mild Tincture) Confirm Administered Dose 30 ml .ROUTE .STK- MED ONE Stop: 11/11/16 07:41 Last Admin: 11/11/16 09:44 Dose: 18 ml Lidocaine HCl (Lidocaine 1%) Confirm Administered Dose 4 ml .ROUTE .STK-MED ONE Stop: 11/11/16 08:27 Lidocaine/Sodium Bicarbonate (Buffered Lidocaine 1% In Ns 8.4%) 0.25 ml IV ONETIME PRN PRN Reason: Prior to IV Start Stop: 11/11/16 18:00 Last Admin: 11/11/16 08:00 Dose: 0.25 ml Meperidine HCl (Demerol) 12.5 mg IVPUSH ONETIME PRN PRN Reason: shivering Stop: 11/12/16 10:01 Midazolam HCl (Versed 1 Mg/Ml) Confirm Administered Dose 2 mg .ROUTE .STK-MED ONE Stop: 11/11/16 08:27 Morphine Sulfate (Duramorph Pf) Confirm Administered Dose 10 mg .ROUTE .STK-MED ONE Stop: 11/11/16 08:28 Multivitamins (Thera) 1 each PO WITHBREAKFAST [facility] Naloxone HCl (Narcan) 0.1 mg IVPUSH Q5M PRN PRN Reason: Oversedation Stop: 11/11/16 12:16 Non-Formulary Medication (Estradiol [Estradiol]) 1 patch TOP WEEKLY [facility] Ondansetron HCl (Zofran) 4 mg IVPUSH ONETIME PRN PRN Reason: Nausea/Vomiting Stop: 11/11/16 18:00 Ondansetron HCl (Zofran) Confirm Administered Dose 4 mg .ROUTE .STK-MED ONE Stop: 11/11/16 10:31 Propofol (Diprivan 20 Ml) Confirm Administered Dose 200 mg .ROUTE .STK-MED ONE Stop: 11/11/16 08:27 Propofol (Diprivan 20 Ml) Confirm Administered Dose 200 mg .ROUTE .STK-MED ONE Stop: 11/11/16 09:15 Tranexamic Acid (Cyklokapron) Confirm Administered Dose 1,000 mg .ROUTE .STK- MED ONE Stop: 11/11/16 07:41 Last Admin: 11/11/16 09:59 Dose: 1,000 mg - Exam Wound/Incisions: dressing dry and intact General: alert, cooperative, no acute distress Lungs: Normal respiratory effort Extremities: normal pulses, no calf tenderness, other (Noemy's negative. NVS intact for RLE. ) - Problem List Review Problem List Initiated/Reviewed/Updated: Yes - My Orders Last 24 Hours: Active Orders 24 hr Category Date Time Status Ready for Discharge [RC] PER UNIT ROUTINE Care 11/12/16 14:03 Inactive Ready for Discharge [RC] PER UNIT ROUTINE Care 11/13/16 09:06 Active Citalopram [Celexa] Med 11/12/16 18:00 Active 10 mg PO DAILY Losartan [Cozaar] Med 11/12/16 16:30 Active 25 mg PO BID hydrALAZINE [Apresoline] Med 11/12/16 16:18 Active 20 mg IVPUSH Q6H PRN Medication Orders Aspirin (Halfprin) 81 mg PO DAILY [facility] Last Admin: 11/13/16 08:41 Dose: 81 mg Admin: 11/12/16 08:02 Dose: 81 mg Bisacodyl (Dulcolax) 5 mg PO DAILY PRN PRN Reason: Constipation Last Admin: 11/12/16 08:02 Dose: 5 mg Cholecalciferol (Vitamin D3) 2,000 units PO DAILY [facility] Last Admin: 11/13/16 08:41 Dose: 2,000 units Admin: 11/12/16 08:02 Dose: 2,000 units Citalopram Hydrobromide (Celexa) 10 mg PO DAILY [facility] Last Admin: 11/13/16 08:41 Dose: 10 mg Admin: 11/12/16 18:17 Dose: Admin: 11/12/16 16:47 Dose: 10 mg Cyclobenzaprine HCl (Flexeril) 10 mg PO TID PRN PRN Reason: Spasms Last Admin: 11/13/16 05:47 Dose: 10 mg Admin: 11/12/16 20:38 Dose: 10 mg Admin: 11/12/16 08:02 Dose: 10 mg Admin: 11/11/16 20:33 Dose: 10 mg Diphenhydramine HCl (Benadryl) 25 mg IVPUSH Q4H PRN PRN Reason: Nausea Last Admin: 11/12/16 03:42 Dose: 25 mg Admin: 11/11/16 18:23 Dose: 25 mg Docusate Sodium (Colace) 100 mg PO BID [facility] Last Admin: 11/13/16 08:39 Dose: 100 mg Admin: 11/12/16 20:38 Dose: 100 mg Admin: 11/12/16 08:01 Dose: 100 mg Admin: 11/11/16 20:33 Dose: 100 mg Duloxetine HCl (Cymbalta) 60 mg PO DAILY [facility] Last Admin: 11/13/16 08:40 Dose: 60 mg Admin: 11/12/16 08:05 Dose: 60 mg Admin: 11/11/16 18:21 Dose: Admin: 11/11/16 10:28 Dose: 60 mg Famotidine (Pepcid) 20 mg PO Q12H [facility] Last Admin: 11/13/16 08:41 Dose: 20 mg Admin: 11/12/16 20:38 Dose: 20 mg Admin: 11/12/16 08:06 Dose: 20 mg Admin: 11/11/16 20:33 Dose: 20 mg Flunisolide (Nasalide Nasal [place]) 0 ml NASBOTH BID PRN PRN Reason: as directed Hydralazine HCl (Apresoline) 20 mg IVPUSH Q6H PRN PRN Reason: Hypertension Last Admin: 11/12/16 20:47 Dose: 20 mg Lorazepam (Ativan) 0.5 mg PO BID PRN PRN Reason: Anxiety Last Admin: 11/12/16 20:38 Dose: 0.5 mg Losartan Potassium (Cozaar) 25 mg PO BID [facility] Last Admin: 11/13/16 08:41 Dose: 25 mg Admin: 11/12/16 20:39 Dose: 25 mg Admin: 11/12/16 16:46 Dose: 25 mg Magnesium Hydroxide (Milk Of Magnesia) 30 ml PO BID PRN PRN Reason: Constipation Medroxyprogesterone Acetate (Provera) 2.5 mg PO DAILY [facility] Last Admin: 11/13/16 08:40 Dose: 2.5 mg Admin: 11/12/16 08:06 Dose: 2.5 mg Metoprolol Succinate (Toprol Xl) 50 mg PO DAILY [facility] Last Admin: 11/13/16 08:39 Dose: 50 mg Admin: 11/12/16 08:03 Dose: 50 mg Admin: 11/11/16 16:49 Dose: Morphine Sulfate (Morphine) 2 mg IVPUSH Q2H PRN PRN Reason: Breakthrough Pain Multivitamins (Thera) 1 each PO DAILY [facility] Last Admin: 11/13/16 08:39 Dose: 1 each Admin: 11/12/16 08:05 Dose: 1 each Ondansetron HCl (Zofran) 4 mg IVPUSH Q6H PRN PRN Reason: Nausea/Vomiting Oxycodone HCl (Oxycodone) 5 mg PO Q6H PRN PRN Reason: Pain Last Admin: 11/13/16 08:50 Dose: 5 mg Admin: 11/13/16 01:44 Dose: 5 mg Admin: 11/12/16 16:46 Dose: 5 mg Admin: 11/12/16 11:11 Dose: 5 mg Oxycodone/Acetaminophen (Percocet 325-5 Mg) 1 - 2 tab PO Q4H PRN PRN Reason: Pain Last Admin: 11/13/16 10:39 Dose: 2 tab Admin: 11/13/16 05:47 Dose: 2 tab Admin: 11/13/16 01:45 Dose: 2 tab Admin: 11/12/16 20:42 Dose: 2 tab Admin: 11/12/16 16:47 Dose: 2 tab Admin: 11/12/16 13:05 Dose: 2 tab Admin: 11/12/16 07:58 Dose: 2 tab Admin: 11/12/16 03:41 Dose: 2 tab Admin: 11/11/16 22:24 Dose: 2 tab Admin: 11/11/16 18:21 Dose: 2 tab Admin: 11/11/16 14:14 Dose: 2 tab Fexofenadine/Pseudoephedrine 1 Tab 0 each PO BID PRN PRN Reason: allergy symptoms Rivaroxaban (Xarelto) 10 mg PO DAILY [facility] Last Admin: 11/13/16 08:40 Dose: 10 mg Admin: 11/12/16 08:14 Dose: 10 mg Senna (Senna) 8.6 mg PO BID PRN PRN Reason: Constipation Sodium Chloride (Saline Flush) 10 ml FLUSH ASDIRECTED PRN PRN Reason: Keep Vein Open Zolpidem Tartrate (Ambien) 10 mg PO BEDTIME PRN PRN Reason: SLEEP - Assessment Assessment (Free Text/Narrative):: POD#2 - right TKA - Plan Plan (Free Text/Narrative):: 1. Xarelto for VTE prophylaxis. Frequent mobility. TEDs. 2. Discharge to home today. The pt feels prepared for discharge to home. 3. Outpatient P.T. The pt's case was discussed with Dr. Au today.
--- NOTE | 2016-11-13 13:20 | PCM.DCSUM1 ---
Discharge Summary - Hospital Course Brief History: Agnieszka is a 56 yo female who underwent right TKA with Dr. Au on 11-11-16. The procedure was completed under spinal anesthesia. The pt tolerated the procedure well and was admitted to the Medical-Surgical Unit. Medical management was provided by the Hospitalist service. The pt noted difficulty with pain management and remained in Hospital until pain was controlled. The pt 's Hgb on POD#1 was 12.5. On POD#1, Xarelto was initiated for VTE prophylaxis. A Mepilex dressing was placed at the incision site at the time of surgery and remained clean and dry. The pt participated in P.T. and O.T. and progressed well. On POD#2, the pt was deemed appropriate to discharge to home with her sister. - Discharge Data Discharge Date: 11/13/16 Discharge Disposition: Home, Self-Care 01 Condition: Good - Patient Summary/Data Operative Procedure(s) Performed: right total knee arthroplasty Consults: Consultations 11/11/ 06:36 Consult to Case Management [CONS] Routine Consult to Physician [CONS] Routine OT Evaluation and Treatment [CONS] Routine 11/11/ 06:39 PT Evaluation and Treatment [CONS] Routine - Patient Instructions Diet: Usual Diet as Tolerated Activity: Apply Ice, As Tolerated, Elevate Extremity, Full Weight Bearing Driving: May Drive Today, Do Not Drive Showering/Bathing: May Shower Showering/Bathing, Other: Keep the dressing in place with showering. Wound/Incision Care: Keep Operative Site/Wound Site Clean and Dry, Do NOT Change Dressing Notify Provider of: Fever, Increased Pain, Swelling and Redness, Drainage, Nausea and/or Vomiting Other/Special Instructions: Please get up and moving around every hour while awake. Please use your walker and have help as needed. Take the blood thinner medication - Xarelto - daily. Do the exercises you were taught in the Hospital. Schedule for P.T. Use the pain medication as needed. The medication may cause drowsiness and constipation. Contact your primary care provider for instructions if you are constipated. You may use a stool softener like docusate sodium or Colace 100mg twice daily and/or a laxative like Miralax daily for constipation. Use the ice machine often. Elevate the limb to decrease swelling. Keep the Mepilex dressing in place until follow-up at the Clinic. Notify the Clinic if the dressing is saturated. Wear the ANGUS hose during the day and you may remove these at night. Schedule an appointment with your primary care provider for 'routine post-op care'. Call the Clinic with questions or concerns - [phone]. - Discharge Plan Prescriptions/Med Rec: Acetaminophen/oxyCODONE [Percocet 325-5 MG] 1 - 2 tab PO Q4H PRN #60 tablet PRN Reason: Pain Cyclobenzaprine [Flexeril] 10 mg PO TID PRN #40 tablet PRN Reason: muscle spasms Rivaroxaban [Xarelto] 10 mg PO DAILY #40 tablet oxyCODONE 5 mg PO Q6H PRN #30 tablet PRN Reason: Pain Home Medications: Home Meds Aspirin [Ecotrin] 81 mg PO DAILY 11/08/16 [History] Cholecalciferol (Vitamin D3) [Vitamin D3] 2,000 unit PO DAILY 11/08/16 [History] Citalopram Hydrobromide [Citalopram HBr] 10 mg PO DAILY 11/08/16 [History] DULoxetine [Cymbalta] 60 mg PO DAILY 11/08/16 [History] Estradiol 1 patch TOP WEEKLY 11/08/16 [History] Fexofenadine/Pseudoephedrine [Rosalind-D 12 Hour] 1 tab PO BID PRN 11/08/16 [ History] Fluticasone Propionate [Flonase] 2 spray NASBOTH BID PRN 11/08/16 [History] LORazepam 0.5 mg PO BID PRN 11/08/16 [History] Metoprolol Succinate 50 mg PO DAILY 11/08/16 [History] Zolpidem [Ambien] 10 mg PO BEDTIME 11/08/16 [History] medroxyPROGESTERone [Provera] 2.5 mg PO DAILY 11/11/16 [History] Acetaminophen/oxyCODONE [Percocet 325-5 MG] 1 - 2 tab PO Q4H PRN #60 tablet 03/24 [Rx] Cyclobenzaprine [Flexeril] 10 mg PO TID PRN #40 tablet 11/12/16 [Rx] Rivaroxaban [Xarelto] 10 mg PO DAILY #40 tablet 11/12/16 [Rx] oxyCODONE 5 mg PO Q6H PRN #30 tablet 11/13/16 [Rx] Patient Handouts: Smoking Cessation, Tips for Success, [id number], Smoking Hazards, Rivaroxaban oral tablets, Total Knee Replacement, Care After, Easy-to- Read, Total Knee Replacement, [id number], Knee Rehabilitation Guidelines Following Surgery Referrals: Angie Erwin PA-C [Physician Section Maintainer] - 11/19/16 10:00 am (Please follow up with Angie Erwin on FridayNovember 19 at [phone].) Kaushal Escobedo MD [Primary Care Provider] - 11/19/16 2:45 pm (Please follow up with Dr. Escobedo on FridayNovember 19 at [phone].) - Patient Data Vitals - Most Recent: Last Vital Signs Temp 99.0 F 11/13/16 07:56 Pulse 79 11/13/16 08:39 Resp 18 11/13/16 07:56 BP 123/65 11/13/16 08:41 Pulse Ox 92 L 11/13/16 07:56 Weight - Most Recent: 207 lb 1 oz I&O - Last 24 hours: Intake & Output 11/12/16 11/13/16 11/13/16 22:59 06:59 14:59 Intake Total 1150 800 450 Output Total 350 3200 Balance 800 -2400 450 Med Orders - Current: Current Medications Aspirin (Halfprin) 81 mg PO DAILY MARKOS Last Admin: 11/13/16 08:41 Dose: 81 mg Bisacodyl (Dulcolax) 5 mg PO DAILY PRN PRN Reason: Constipation Last Admin: 11/12/16 08:02 Dose: 5 mg Cholecalciferol (Vitamin D3) 2,000 units PO DAILY MARKOS Last Admin: 11/13/16 08:41 Dose: 2,000 units Citalopram Hydrobromide (Celexa) 10 mg PO DAILY MARKOS Last Admin: 11/13/16 08:41 Dose: 10 mg Cyclobenzaprine HCl (Flexeril) 10 mg PO TID PRN PRN Reason: Spasms Last Admin: 11/13/16 05:47 Dose: 10 mg Diphenhydramine HCl (Benadryl) 25 mg IVPUSH Q4H PRN PRN Reason: Nausea Last Admin: 11/12/16 03:42 Dose: 25 mg Docusate Sodium (Colace) 100 mg PO BID [facility] Last Admin: 11/13/16 08:39 Dose: 100 mg Duloxetine HCl (Cymbalta) 60 mg PO DAILY [facility] Last Admin: 11/13/16 08:40 Dose: 60 mg Famotidine (Pepcid) 20 mg PO Q12H [facility] Last Admin: 11/13/16 08:41 Dose: 20 mg Flunisolide (Nasalide Nasal [place]) 0 ml NASBOTH BID PRN PRN Reason: as directed Hydralazine HCl (Apresoline) 20 mg IVPUSH Q6H PRN PRN Reason: Hypertension Last Admin: 11/12/16 20:47 Dose: 20 mg Lorazepam (Ativan) 0.5 mg PO BID PRN PRN Reason: Anxiety Last Admin: 11/12/16 20:38 Dose: 0.5 mg Losartan Potassium (Cozaar) 25 mg PO BID [facility] Last Admin: 11/13/16 08:41 Dose: 25 mg Magnesium Hydroxide (Milk Of Magnesia) 30 ml PO BID PRN PRN Reason: Constipation Medroxyprogesterone Acetate (Provera) 2.5 mg PO DAILY [facility] Last Admin: 11/13/16 08:40 Dose: 2.5 mg Metoprolol Succinate (Toprol Xl) 50 mg PO DAILY [facility] Last Admin: 11/13/16 08:39 Dose: 50 mg Morphine Sulfate (Morphine) 2 mg IVPUSH Q2H PRN PRN Reason: Breakthrough Pain Multivitamins (Thera) 1 each PO DAILY [facility] Last Admin: 11/13/16 08:39 Dose: 1 each Ondansetron HCl (Zofran) 4 mg IVPUSH Q6H PRN PRN Reason: Nausea/Vomiting Oxycodone HCl (Oxycodone) 5 mg PO Q6H PRN PRN Reason: Pain Last Admin: 11/13/16 08:50 Dose: 5 mg Oxycodone/Acetaminophen (Percocet 325-5 Mg) 1 - 2 tab PO Q4H PRN PRN Reason: Pain Last Admin: 11/13/16 10:39 Dose: 2 tab Fexofenadine/Pseudoephedrine 1 Tab 0 each PO BID PRN PRN Reason: allergy symptoms Rivaroxaban (Xarelto) 10 mg PO DAILY [facility] Last Admin: 11/13/16 08:40 Dose: 10 mg Senna (Senna) 8.6 mg PO BID PRN PRN Reason: Constipation Sodium Chloride (Saline Flush) 10 ml FLUSH ASDIRECTED PRN PRN Reason: Keep Vein Open Zolpidem Tartrate (Ambien) 10 mg PO BEDTIME PRN PRN Reason: SLEEP Discontinued Medications Bupivacaine HCl (Marcaine 0.25%) Confirm Administered Dose 30 ml .ROUTE .STK- MED ONE Stop: 11/11/16 07:41 Last Admin: 11/11/16 09:55 Dose: 20 ml Cefazolin Sodium (Ancef) Confirm Administered Dose 2 gm .ROUTE .STK-MED ONE Stop: 11/11/16 07:41 Last Admin: 11/11/16 09:47 Dose: 2 gm Cefazolin Sodium (Ancef) Confirm Administered Dose 2 gm .ROUTE .STK-MED ONE Stop: 11/11/16 08:30 Morphine Sulfate 8 mg/Epinephrine HCl 0.3 mg/Cefuroxime Sodium 750 mg/Ketorolac Tromethamine 30 mg/Sodium Chloride 27.9 ml 0 mg .XX ONETIME ONE Stop: 11/11/16 09:01 Last Admin: 11/11/16 09:54 Dose: 788.3 mg Diphenhydramine HCl (Benadryl) 25 mg IVPUSH Q6H PRN PRN Reason: pruritis Stop: 11/11/16 18:00 Last Admin: 11/11/16 14:05 Dose: 25 mg Ephedrine Sulfate (Ephedrine In Ns) Confirm Administered Dose 25 mg .ROUTE .STK- MED ONE Stop: 11/11/16 10:30 Fentanyl (Sublimaze) Confirm Administered Dose 100 mcg .ROUTE .STK-MED ONE Stop: 11/11/16 08:27 Fentanyl (Sublimaze) 50 mcg IVPUSH Q5M PRN PRN Reason: Pain Stop: 11/11/16 18:00 Lactated Ringer's (Ringers, Lactated) 1,000 mls @ 125 mls/hr IV ASDIRECTED MARKOS Last Admin: 11/11/16 10:57 Dose: 125 mls/hr Cefazolin Sodium/Dextrose 2 gm (/ Premix) 50 mls @ 100 mls/hr IV Q8H MARKOS Stop: 11/12/16 08:59 Last Admin: 11/12/16 07:57 Dose: 100 mls/hr Lactated Ringer's (Ringers, Lactated) Confirm Administered Dose 1,000 mls @ as directed .ROUTE .STK-MED ONE Stop: 11/11/16 08:54 Lactated Ringer's (Ringers, Lactated) Confirm Administered Dose 1,000 mls @ as directed .ROUTE .STK-MED ONE Stop: 11/11/16 10:03 Iodine (Iodine 2% Mild Tincture) Confirm Administered Dose 30 ml .ROUTE .STK- MED ONE Stop: 11/11/16 07:41 Last Admin: 11/11/16 09:44 Dose: 18 ml Lidocaine HCl (Lidocaine 1%) Confirm Administered Dose 4 ml .ROUTE .STK-MED ONE Stop: 11/11/16 08:27 Lidocaine/Sodium Bicarbonate (Buffered Lidocaine 1% In Ns 8.4%) 0.25 ml IV ONETIME PRN PRN Reason: Prior to IV Start Stop: 11/11/16 18:00 Last Admin: 11/11/16 08:00 Dose: 0.25 ml Meperidine HCl (Demerol) 12.5 mg IVPUSH ONETIME PRN PRN Reason: shivering Stop: 11/12/16 10:01 Midazolam HCl (Versed 1 Mg/Ml) Confirm Administered Dose 2 mg .ROUTE .STK-MED ONE Stop: 11/11/16 08:27 Morphine Sulfate (Duramorph Pf) Confirm Administered Dose 10 mg .ROUTE .STK-MED ONE Stop: 11/11/16 08:28 Multivitamins (Thera) 1 each PO WITHBREAKFAST [facility] Naloxone HCl (Narcan) 0.1 mg IVPUSH Q5M PRN PRN Reason: Oversedation Stop: 11/11/16 12:16 Non-Formulary Medication (Estradiol [Estradiol]) 1 patch TOP WEEKLY MARKOS Ondansetron HCl (Zofran) 4 mg IVPUSH ONETIME PRN PRN Reason: Nausea/Vomiting Stop: 11/11/16 18:00 Ondansetron HCl (Zofran) Confirm Administered Dose 4 mg .ROUTE .STK-MED ONE Stop: 11/11/16 10:31 Propofol (Diprivan 20 Ml) Confirm Administered Dose 200 mg .ROUTE .STK-MED ONE Stop: 11/11/16 08:27 Propofol (Diprivan 20 Ml) Confirm Administered Dose 200 mg .ROUTE .STK-MED ONE Stop: 11/11/16 09:15 Tranexamic Acid (Cyklokapron) Confirm Administered Dose 1,000 mg .ROUTE .STK- MED ONE Stop: 11/11/16 07:41 Last Admin: 11/11/16 09:59 Dose: 1,000 mg *Q Meaningful Use (DIS) - VTE *Q VTE Criteria *Q: - Stroke *Q Stroke Criteria *Q: - AMI *Q AMI Criteria *Q:
== END 2016-11-13 11:15 | disposition home or self-care (01) | DRG 470 ==
LOC: JD.OB 07:34 → JD.MS 09:53
PROVIDERS: ADMIT Orthopaedic Surgery; ATTEND Orthopaedic Surgery
PROC: 0SRC0J9 Replacement of Right Knee Joint with Synthetic Substitute, Cemented, Open Approach (ICD-10-PCS; principal; 2016-11-11)
DX: M17.11 Unilateral primary osteoarthritis, right knee (principal); F32.9 Major depressive disorder, single episode, unspecified; I10 Essential (primary) hypertension; E78.1 Pure hyperglyceridemia; E66.8 Other obesity; M19.90 Unspecified osteoarthritis, unspecified site; Z79.82 Long term (current) use of aspirin; Z79.899 Other long term (current) drug therapy; F17.210 Nicotine dependence, cigarettes, uncomplicated
CPT/HCPCS: 01400; 36415; 73560-26-RT; 73560-RT; 80053; 85025; 94762; 97110-GP; 97116-GP; 97161-GP; 97165-GO; 97535-GO; 99232; A9270-GY; C1713; C1776; J0171; J0360; J0690; J0697; J1200; J1885; J2250; J2270; J2405; J2704; J3010; J3490; J7050; J7120